=== PATIENT | male | born 1955 | race Caucasian/White ===

== ENCOUNTER 2017-02-22 10:36 | Observation (INO) | payer MEDICARE, MEDICAID ==
[2017-02-22] MEDS ORDERED: Albuterol/Ipratropium NEB.SOL* Albuterol 2.5 MG/Ipratropium 0.5 MG 3 ML INH ONE (11:45)
[2017-02-22 12:30] LABS: ABS Basophils 0.1 10^3/ul (0-0.2); ABS Eosinophils 0.2 10^3/ul (0-0.6); ABS Lymphocytes 1.9 10^3/ul (1.0-4.8); ABS Monocytes 0.8 10^3/ul (0-0.8); ABS Nucleated RBC 0 10^3/ul; Eosinophil % 2.5 % (0-6); Hematocrit 41 % (42-52); Hemoglobin 13.7 g/dl (14.0-18.0); Lymphocyte % 28.2 % (25-47); Mean Corpuscular HGB Conc 34 g/dl (31-36); Mean Corpuscular Hemoglobin 30 pg (27-31); Mean Corpuscular Volume 91 fL (80-94); Mean Platelet Volume 8 um3 (7.4-10.4); Nucleated Red Blood Cells % 0; Platelet Count 302 10^3/ul (150-450); Red Blood Count 4.52 10^6/ul (4.0-5.4); Red Cell Distribution Width 14 % (10.5-15); White Blood Count 6.9 10^3/ul (3.5-10.8)
[2017-02-22] MEDS: NS 0.9% 1000 ML* 2,000 ML IV ONE (12:34)
[2017-02-22 12:41] LABS: INR 1.1 (0.77-1.02)
--- NOTE | 2017-02-22 12:55 | RAD ---
Indication: Shortness of breath, hypoxia. Comparison: October 13, 2012 Technique: Upright AP 1221 hours Report: Low lung volumes compared with the prior exam with associated basilar atelectasis. Grossly clear pleural spaces. Negative for pneumothorax. Cardiomegaly. Unremarkable central pulmonary vasculature. IMPRESSION: Limited hypoventilated exam for this patient with associated basilar atelectasis.
[2017-02-22 13:00] LABS: EGFR Non-African American 45.5 (>60)
[2017-02-22] MEDS ORDERED: Magnesium Sulfate 2 GM IV* 2 GM/50 ML BAG IVPB ONE (13:18)
[2017-02-22] MEDS ORDERED: Acetaminophen TAB* 325 MG PO PRN (16:02)
[2017-02-22] MEDS ORDERED: Dextrose 50% Syringe 50 ML* 25 GM/50 ML SYRINGE IV PUSH PRN (16:03)
[2017-02-22] MEDS: Insulin LISPRO* 1 UNITS UNIT SUBCUT SCH (17:52)
[2017-02-22] MEDS: Atorvastatin* 10 MG TAB PO SCH (17:53)
[2017-02-22] MEDS: NS 0.9% 1000 ML* 1,000 ML IV SCH (17:56)
--- NOTE | 2017-02-22 18:08 | ED ---
Chasidy Jeffers Abhishek, scribed for Art Britton MD on 02/22/17 at 1216 . Complex/Multi-Sys Presentation - HPI Summary HPI Summary: This patient is a 61 year old M presenting [place] [facility] by with a chief complaint of weakness since 02/19/17. The Pt states that he has been having Low blood pressure, low oxygen levels and low blood sugar (this morning only). Currently blood sugar level is normal to slightly high (pt is diabetic). Pt is reportedly influenza A positive. The patient rates the pain 7/10 in severity. Symptoms aggravated by nothing. Symptoms alleviated by nothing. Patient reports wheezing, SOB, chest pain, body aches, and diaphoresis. Patient denies nausea, abd pain, leg pain, urinary pain, diarrhea, hematochezia, and syncope. Pt is on low dosages of aspirin. - History Of Current Complaint Chief Complaint: EDGeneral Time Seen by Provider: 02/22/17 11:33 Hx Obtained From: Patient Onset/Duration: Gradual Onset - 02/19/17, Lasting Days - since 02/19/17, Still Present Timing: Constant Severity Currently: Moderate - 7/10 in pain severity Severity Initially: Moderate Aggravating Factor(s): nothing Alleviating Factor(s): nothing Associated Signs And Symptoms: Positive: Weakness, SOB, Wheezing, Chest Pain, Abdominal Pain, Diaphoresis, Other - body aches. Negative leg pain, urinary pain , and hematochezia. Negative: Syncope, Nausea, Diarrhea - Allergies/Home Medications Allergies/Adverse Reactions: Allergies Allergy/AdvReac Type Severity Reaction Status Date / Time Penicillin G Allergy Unknown Verified 10/13/12 14:25 Reaction Details PMH/Surg Hx/FS Hx/Imm Hx Endocrine/Hematology History: Reports: Hx Diabetes Denies: Hx Thyroid Disease Cardiovascular History: Reports: Hx Angina, Hx Hypercholesterolemia, Hx Hypertension Denies: Hx Coronary Artery Disease, Hx Myocardial Infarction, Hx Valvular Heart Disease Respiratory History: Denies: Hx Asthma, Hx Chronic Obstructive Pulmonary Disease (COPD) GI History: Denies: Hx Ulcer Comment Only: Other GI Disorders - GURD - Cancer History Cancer Type, Location and Year: BARRETTS SYNDROM 16YRS AGO - Surgical History Surgery Procedure, Year, and Place: umbilical hernia as baby. throat surgery as child. lukasz fundoplication Infectious Disease History: No Infectious Disease History: Denies: Hx Hepatitis, Traveled Outside the [place] in Last 30 Days - Family History Known Family History: Positive: Cardiac Disease - CAD, Diabetes Family History: Negative IA - Social History Lives: With Family Alcohol Use: None Substance Use Type: Reports: None Smoking Status (MU): Former Smoker Review of Systems Positive: Skin Diaphoresis Eyes: Negative ENT: Negative Positive: Chest Pain Positive: Shortness Of Breath, Other - wheezing Positive: Other - Negative hematochezia. Negative: Abdominal Pain, Diarrhea, Nausea Negative: pain Positive: Myalgia - body aches, Other - negative leg pain Skin: Negative Negative: Syncope Psychological: Normal All Other Systems Reviewed And Are Negative: Yes Physical Exam - Summary Physical Exam Summary: General: well-appearing, no pain distress, Generalized weakness Skin: warm, color reflects adequate perfusion, dry Head: normal Eyes: EOMI, VINCE ENT: Oral mucous really dry Neck: supple, nontender Respiratory:Occasional wheeze Cardiovascular: RRR Abdomen: soft, nontender Bowel: present Musculoskeletal: normal, strength/ROM intact Neurological: normal, sensory/motor intact, A&O x3, No focal neurological deficit Psychological: affect/mood appropriate Triage Information Reviewed: Yes Vital Signs On Initial Exam: Initial Vitals Temp Pulse Resp BP Pulse Ox 97.0 F 95 22 146/103 97 02/22/17 10:42 02/22/17 10:42 02/22/17 10:42 02/22/17 10:42 02/22/17 10:42 Vital Signs Reviewed: Yes - [place] Coma Scale Coma Scale Total: 15 Diagnostics - Vital Signs Vital Signs Temp Pulse Resp BP Pulse Ox 02/22/17 10:42 97.0 F 95 22 146/103 97 - Laboratory Lab Results: Lab Results 02/22/17 02/22/17 02/22/17 Range/Units 12:16 12:16 12:16 WBC (3.5-10.8) 10^3/ul RBC (4.0-5.4) 10^6/ul Hgb (14.0-18.0) g/dl Hct (42-52) % MCV (80-94) fL MCH (27-31) pg MCHC (31-36) g/dl RDW (10.5-15) % Plt Count (150-450) 10^3/ul MPV (7.4-10.4) um3 Neut % (Auto) (38-83) % Lymph % (Auto) (25-47) % [place] % (Auto) (1-9) % Eos % (Auto) (0-6) % Baso % (Auto) (0-2) % Absolute Neuts (auto) (1.5-7.7) 10^3/ul Absolute Lymphs (auto) (1.0-4.8) 10^3/ul Absolute Monos (auto) (0-0.8) 10^3/ul Absolute Eos (auto) (0-0.6) 10^3/ul Absolute Basos (auto) (0-0.2) 10^3/ul Absolute Nucleated RBC 10^3/ul Nucleated RBC % INR (Anticoag Therapy) 1.10 H (0.77-1.02) APTT 34.4 (26.0-36.3) seconds Sodium 134 (133-145) mmol/L Potassium 4.1 (3.5-5.0) mmol/L Chloride 100 L (101-111) mmol/L Carbon Dioxide 25 (22-32) mmol/L Anion Gap 9 (2-11) mmol/L BUN 29 H (6-24) mg/dL Creatinine 1.55 H (0.67-1.17) mg/dL Est GFR ( Amer) 58.5 (>60) Est GFR (Non-Af Amer) 45.5 (>60) BUN/Creatinine Ratio 18.7 (8-20) Glucose 247 H (70-100) mg/dL Lactic Acid (0.5-2.0) mmol/L Calcium 9.2 (8.6-10.3) mg/dL Magnesium 1.8 L (1.9-2.7) mg/dL Total Bilirubin 0.30 (0.2-1.0) mg/dL AST 30 (13-39) U/L ALT 30 (7-52) U/L Alkaline Phosphatase 50 (34-104) U/L Troponin I 0.00 (<0.04) ng/mL C-Reactive Protein 64.95 H (< 5.00) mg/L B-Natriuretic Peptide 40 ( - 100) pg/mL Total Protein 6.8 (6.4-8.9) g/dL Albumin 3.2 (3.2-5.2) g/dL Globulin 3.6 (2-4) g/dL Albumin/Globulin Ratio 0.9 L (1-3) Lipase < 10 L (11.0-82.0) U/L TSH 2.75 (0.34-5.60) mcIU/mL 02/22/17 02/22/17 Range/Units 12:16 12:16 WBC 6.9 (3.5-10.8) 10^3/ul RBC 4.52 (4.0-5.4) 10^6/ul Hgb 13.7 L (14.0-18.0) g/dl Hct 41 L (42-52) % MCV 91 (80-94) fL MCH 30 (27-31) pg MCHC 34 (31-36) g/dl RDW 14 (10.5-15) % Plt Count 302 (150-450) 10^3/ul MPV 8 (7.4-10.4) um3 Neut % (Auto) 57.5 (38-83) % Lymph % (Auto) 28.2 (25-47) % [place] % (Auto) 11.1 H (1-9) % Eos % (Auto) 2.5 (0-6) % Baso % (Auto) 0.7 (0-2) % Absolute Neuts (auto) 4.0 (1.5-7.7) 10^3/ul Absolute Lymphs (auto) 1.9 (1.0-4.8) 10^3/ul Absolute Monos (auto) 0.8 (0-0.8) 10^3/ul Absolute Eos (auto) 0.2 (0-0.6) 10^3/ul Absolute Basos (auto) 0.1 (0-0.2) 10^3/ul Absolute Nucleated RBC 0 10^3/ul Nucleated RBC % 0 INR (Anticoag Therapy) (0.77-1.02) APTT (26.0-36.3) seconds Sodium (133-145) mmol/L Potassium (3.5-5.0) mmol/L Chloride (101-111) mmol/L Carbon Dioxide (22-32) mmol/L Anion Gap (2-11) mmol/L BUN (6-24) mg/dL Creatinine (0.67-1.17) mg/dL Est GFR ( Amer) (>60) Est GFR (Non-Af Amer) (>60) BUN/Creatinine Ratio (8-20) Glucose (70-100) mg/dL Lactic Acid 1.5 (0.5-2.0) mmol/L Calcium (8.6-10.3) mg/dL Magnesium (1.9-2.7) mg/dL Total Bilirubin (0.2-1.0) mg/dL AST (13-39) U/L ALT (7-52) U/L Alkaline Phosphatase (34-104) U/L Troponin I (<0.04) ng/mL C-Reactive Protein (< 5.00) mg/L B-Natriuretic Peptide ( - 100) pg/mL Total Protein (6.4-8.9) g/dL Albumin (3.2-5.2) g/dL Globulin (2-4) g/dL Albumin/Globulin Ratio (1-3) Lipase (11.0-82.0) U/L TSH (0.34-5.60) mcIU/mL Result Diagrams: 02/22/17 12:16 02/22/17 12:16 Lab Statement: Any lab studies that have been ordered have been reviewed, and results considered in the medical decision making process. - Radiology Chest X-ray Radiology Interpretation Completed By: Radiologist - CXR reveals, per radiologist, Limited hypoventilated exam for this patient with associated basilar atelectasis. ED physician has reviewed this radiology report and agrees. - EKG 1155 EKG Rhythm: Sinus Rhythm - [address] Segment: Normal Ectopy: None EKG Interpretation: EKG was taken at 1155 Complex Multi-Symp Course/Dx Course Of Treatment: ADMIT HOSPITALIST. CRITICAL CARE TIME LESS THAN 30 MINUTES. - Diagnoses Provider Diagnoses: Influenza A, Hypotension, Hypoxia Discharge - Discharge Plan Condition: Stable Disposition: ADMITTED TO [facility] documentation as recorded by the Chasidy fisher Abhishek accurately reflects the service I personally performed and the decisions made by me, Art Britton MD.
[2017-02-22] MEDS ORDERED: Gabapentin CAP(*) 300 MG PO SCH (21:00)
[2017-02-22] MEDS ORDERED: Nortriptyline CAP* 25 MG PO SCH (21:00)
[2017-02-22] MEDS: Heparin VIAL(*) 5000 UNITS/ML VIAL (FIVE THOUSAND) SUBCUT SCH (21:39)
[2017-02-22] MEDS: Oseltamivir CAP* 75 MG PO SCH (21:39)
--- NOTE | 2017-02-23 00:36 | HP ---
CC: Markell Hale MD * HISTORY AND PHYSICAL: DATE OF ADMISSION: 02/22/17 PRIMARY CARE PROVIDER: Dr. Markell Hale. ATTENDING PHYSICIAN: Dr. Merlene Manning * (dictated by Martina Do NP) CHIEF COMPLAINT: Generalized malaise and weakness for a week. HISTORY OF PRESENT ILLNESS: Mr. Grier is a 61-year-old male with past medical history significant for type 2 diabetes mellitus, Barrette's esophagus, hypertension, hyperlipidemia, GERD, and angina who presented to the emergency room from his primary care doctor's office with complaints of not feeling well for a week. The patient states that approximately a week ago, he began not feeling well. He reported not eating well due to feeling tired and weak. He denied any fever or chills, chest pain, nausea, vomiting, diarrhea, abdominal pain, shortness of breath. He denies any urinary symptoms such has urinary frequency, urgency or dysuria. He reports lightheadedness and dizziness when up. He also reported a nonproductive cough for approximately a week. He reports that his blood glucose has been low, he suspect due to not eating or drinking well. He presented to his primary care doctor's office for evaluation where he was found to be influenza A positive and was sent to the emergency room. While in the emergency room, the patient had labs that were fairly unremarkable , but significant for elevated creatinine of 1.55. He was found to have hypomagnesemia with a magnesium of 1.8, CRP of 64.95. He had no leukocytosis. He was afebrile. He was found to be slightly hypotensive with blood pressures ranging from the 70 systolic to the 120s. Hospitalists were asked to evaluate the patient for admission. PAST MEDICAL HISTORY: 1. Diabetes mellitus type 2. 2. Barrette's esophagus. 3. Hypertension. 4. Hyperlipidemia. 5. GERD. 6. Angina. PAST SURGICAL HISTORY: 1. Status post Sourav fundoplication. 2. Status post umbilical hernia repair as a child. 3. Status post several neck surgeries as a child. HOME MEDICATIONS: Include: 1. Invokana 300 mg oral daily. 2. Atenolol 25 mg oral daily. 3. Aspirin 162 mg oral daily. 4. Nitroglycerin 0.4 mg sublingual as needed for chest pain. 5. Levemir insulin 50 units subcutaneous daily. 6. Gabapentin 1200 mg oral daily. 7. Gabapentin 1800 mg oral at bedtime. 8. Vitamin D3 2000 units oral daily. 9. Metformin 1000 mg oral twice daily. 10. Glipizide 5 mg oral twice daily. 11. Pravastatin 40 mg oral daily. 12. Omeprazole 20 mg oral daily. 13. Nortriptyline 50 mg oral daily at bedtime. 14. Ibuprofen 600 mg oral 3 times daily as needed for pain. ALLERGIES: PENICILLIN G. FAMILY HISTORY: The patient's paternal grandfather passed at age 94 from heart disease. His father passed at age 66 from heart disease. The patient's paternal grandmother had a history of diabetes mellitus and the patient's mother passed from leukemia. SOCIAL HISTORY: The patient is a former smoker. He quit smoking approximately 22 years ago. Prior to that, he had a 20 to 25 year 2 and a half pack-a-day smoking history. He denies alcohol or recreational drug use. He is retired. He lives with his . His , Heidi Grier, will be his surrogate decision maker in the event he is unable to make decisions for himself. REVIEW OF SYSTEMS: I performed a 14-point review of systems. All the pertinent positives and negatives are mentioned in the history of present illness. The patient reports diabetic neuropathy affecting his feet. The remaining review of systems are negative. PHYSICAL EXAMINATION GENERAL: The patient is alert, pleasant, appears to be in no acute distress. VITAL SIGNS: Temperature 97.0, heart rate 89, respiratory rate 18, O2 sat 98% on room air, blood pressure 109/63. HEENT: Normocephalic, atraumatic. Pupils are equal and reactive to light. Extraocular movements are intact. Dry mucous membranes. RESPIRATORY: There is no accessory muscle use. The lungs are clear to auscultation bilateral. CARDIAC: Regular rate and rhythm. S1, S2 present. There are no murmurs, rubs , or gallops heard. ABDOMEN: Soft, large, nontender, nondistended. There are bowel sounds present x4. EXTREMITIES: There is no lower extremity edema. DP and PT pulses are 2+ and symmetric. MUSCULOSKELETAL: There is no clubbing or cyanosis noted. The patient exhibits good strength in all extremities. NEUROLOGIC: The patient is alert and oriented x4. Cranial nerves II through XII are grossly intact. PSYCHOLOGICAL: The patient is calm and cooperative. SKIN: There are no rashes or abnormalities seen. DIAGNOSTIC STUDIES/LAB DATA: Sodium 134, potassium 4.1, chloride 100, CO2 25, BUN 29, creatinine 1.55, glucose 247, magnesium 1.8. CRP 54.95. White blood cell count 6.9, hemoglobin 13.7, hematocrit 41, and glucose 302. EKG from today shows sinus rhythm, rate of 89, and a left anterior fascicular block similar to previous EKG from 11/06/10, there are no acute signs of ischemia. Chest x-ray from today. Radiologist's impression, limited hypoventilated exam, associated bibasilar atelectasis. IMPRESSION: Mr. Grier is a 61-year-old male with past medical history significant for type 2 diabetes, hypertension, hyperlipidemia, Barrette's esophagus, gastroesophageal reflux disease, and angina, who presents to the emergency room from his primary care doctor's office with generalized malaise, weakness for a week and who was found to be influenza A positive. He will be admitted as an observation for influenza. ASSESSMENT/PLAN: 1. Influenza A. The patient had a positive influenza A test at his primary care office, we will start him on Tamiflu. The patient's chest x-ray shows that he has bilateral lower lobe atelectasis. He has been encouraged to cough and deep breathe. We will give him an incentive spirometer. 2. Acute kidney injury. I suspect this is secondary to dehydration. We will give the patient IV fluids, recheck his labs in the morning. 3. Weakness. I suspect this is secondary to the patient's influenza. We will provide supportive care. The patient had change in his blood pressure from lying to standing, he did not quite have a 20-point drop in his systolic or 10- point drop in his diastolic and his heart rate remained stable. We will recheck orthostatic vital signs on him in the morning after he has received IV fluids overnight. 4. Hypomagnesium. The patient received electrolyte replacement in the emergency room. We will recheck his labs in the morning. 5. Type 2 diabetes mellitus. The patient will have fingersticks a.c. and h.s. He will be on a consistent carbohydrate diet. We will give him Lantus in place of his Levemir. He will have lispro sliding scale coverage with meals. We will hold his oral antidiabetic agents while he is in the hospital. 6. Hypertension. The patient has been hypotensive at this time, I suspect secondary to his illness. I am going to continue his atenolol, but place hold parameters on it. 7. Hyperlipidemia. The patient will be continued on statin. 8. Diabetic neuropathy. The patient will be continued on his home gabapentin. 9. Gastroesophageal reflux disease. The patient will be continue on his home omeprazole. 10. Fluids, electrolytes, nutrition: The patient will be on a consistent carbohydrate diet. 11. Code status: DNR. 12. DVT prophylaxis: The patient is at high risk. We will give him subcu heparin. 13. Disposition: Observation. TIME SPENT: Time for this admission was approximately 60 minutes, greater than half of that was spent with the patient and his discussing medications, past medical history, and the events leading to his arrival today, performing a physical examination. The case has been reviewed with the attending, Dr. Manning , who agrees with the plan of care. Reviewed by JORJE GUZMAN 02/26/2017 1811 [id number]/CPS #: [id number] MTDD
[2017-02-23] MEDS: NS 0.9% 1000 ML* 1,000 ML IV SCH (04:32)
[2017-02-23] MEDS: Heparin VIAL(*) 5000 UNITS/ML VIAL (FIVE THOUSAND) SUBCUT SCH ×2 (05:46→13:56)
[2017-02-23] MEDS: Insulin LISPRO* 1 UNITS UNIT SUBCUT SCH ×3 (07:32→16:31)
[2017-02-23] MEDS: Oseltamivir CAP* 75 MG PO SCH (08:37)
[2017-02-23] MEDS: Atorvastatin* 10 MG TAB PO SCH (08:38)
[2017-02-23] MEDS ORDERED: Omeprazole CAP* 20 MG PO SCH (09:00)
[2017-02-23] MEDS ORDERED: Atenolol TAB* 25 MG PO SCH (09:00)
[2017-02-23] MEDS ORDERED: Aspirin EC Low Dose* 81 MG TAB.EC PO SCH (09:00)
[2017-02-23] MEDS ORDERED: Gabapentin CAP(*) 300 MG PO SCH (09:00)
[2017-02-23] MEDS ORDERED: Insulin GLARGINE(*) 1 UNITS UNIT SUBCUT SCH (09:00)
[2017-02-23] MEDS ORDERED: Cholecalciferol TAB* 1000 UNITS PO SCH (09:00)
[2017-02-23 12:12] VITALS: BP 103/66
--- NOTE | 2017-02-23 13:54 | PN ---
Subjective Date of Service: 02/23/17 Interval History: Patient seen and examined at bedside. Denies fever, chills, shortness of breath , chest discomfort, N/V/D. Pt states that he continues to feel fatigued, but is over all feeling better. Family History: Unchanged from Admission Social History: Unchanged from Admission Past Medical History: Unchanged from Admission Objective Active Medications: Acetaminophen (Tylenol Tab*) 650 mg PO Q4H PRN Reason: FEVER/PAIN Aspirin (Aspirin Ec Low Dose*) 162 mg PO DAILY [facility] Atenolol (Tenormin Tab*) 25 mg PO DAILY [facility] Atorvastatin Calcium (Lipitor*) 10 mg PO DAILY [facility] Cholecalciferol (Vitamin D Tab*) 2,000 units PO DAILY [facility] Dextrose (D50w Syringe 50 Ml*) 12.5 gm IV PUSH .FOR FS < 60 - SS PRN Reason: FS < 60 Gabapentin (Neurontin Cap(*)) 1,200 mg PO DAILY [facility] Gabapentin (Neurontin Cap(*)) 1,800 mg PO BEDTIME [facility] Heparin Sodium (Porcine) (Heparin Vial(*)) 5,000 units SUBCUT Q8HR [facility] Sodium Chloride (Ns 0.9% 1000 Ml*) 1,000 mls @ 100 mls/hr IV PER RATE [facility] Insulin Glargine (Lantus(*)) 50 units SUBCUT DAILY [facility] Insulin Human Lispro (Humalog*) 0 - 10 units SUBCUT AC [facility] Nortriptyline HCl (Pamelor Cap*) 50 mg PO BEDTIME [facility] Omeprazole (Prilosec Cap*) 20 mg PO DAILY [facility] Oseltamivir Phosphate (Tamiflu Cap*) 75 mg PO BID [facility] Stop: 02/27/17 09:01 Vital Signs - 8 hr 02/23/17 02/23/17 02/23/17 07:20 08:03 08:10 Temperature 97.3 F Pulse Rate 72 79 Respiratory 18 18 Rate Blood Pressure 108/70 117/73 (mmHg) O2 Sat by Pulse 99 Oximetry 02/23/17 02/23/17 02/23/17 08:11 08:37 08:46 Temperature Pulse Rate 82 Respiratory 18 Rate Blood Pressure 96/60 132/72 (mmHg) O2 Sat by Pulse Oximetry 02/23/17 02/23/17 02/23/17 08:53 10:39 11:49 Temperature 97.3 F Pulse Rate 78 64 Respiratory 16 20 Rate Blood Pressure 132/72 103/66 (mmHg) O2 Sat by Pulse 100 Oximetry Oxygen Devices in Use Now: Nasal Cannula - 3L Appearance: NAD, laying in bed Ears/Nose/Mouth/Throat: Mucous Membranes Moist Respiratory: Symmetrical Chest Expansion and Respiratory Effort, Clear to Auscultation Cardiovascular: NL Sounds; No Murmurs; No JVD, RRR Abdominal: NL Sounds; No Tenderness; No Distention Extremities: No Edema Skin: No Rash or Ulcers Neurological: Alert and Oriented x 3, NL Muscle Strength and Tone Lines/Tubes/Other Access: Clean, Dry and Intact Peripheral IV - site benign Nutrition: Taking PO's Result Diagrams: 02/22/17 12:16 02/22/17 12:16 Additional Lab and Data: Assess/Plan/Problems-Billing Assessment: Mr. Grier is a 61 yo male with PMH significant DM, Barrette's esophagus, HTN, HLD, GERD, angina who presented to the emergency room with complaints of weakness and not feeling well for 1 week. He was found to have influenza A in his PCP office. - Patient Problems (1) Influenza A Code(s): J10.1 - FLU DUE TO OTH IDENT INFLUENZA VIRUS W OTH RESP MANIFEST SNOMED Code(s): 484398114 Comment: - Improving - Afebrile - Labs pending - Continue Tamiflu for 4 more days (2) LAZARO (acute kidney injury) Code(s): N17.9 - ACUTE KIDNEY FAILURE, UNSPECIFIED SNOMED Code(s): 35539618 Comment: - Suspect secondary to dehydration - Labs pending (3) Weakness Code(s): R53.1 - WEAKNESS SNOMED Code(s): 26066405 Comment: - Improving - Suspect secondary to illness (4) Electrolyte abnormality Code(s): E87.8 - OTH DISORDERS OF ELECTROLYTE AND FLUID BALANCE, NEC SNOMED Code(s): 654202419 Comment: - Hypomagnesium - Received replacement, labs pending today (5) Diabetes Code(s): E11.9 - TYPE 2 DIABETES MELLITUS WITHOUT COMPLICATIONS SNOMED Code(s) : 52702058 Comment: - With diabetic neuropathy - Glucose 120's - Continue Glucose checks, gabapentin, Lispro SS, and Lantus - Resume home oral antidiabetic agents at discharge (6) HTN (hypertension) Code(s): I10 - ESSENTIAL (PRIMARY) HYPERTENSION SNOMED Code(s): 49784087 Comment: - Mostly normotensive - Continue atenolol with hold patameters (7) GERD (gastroesophageal reflux disease) Code(s): K21.9 - GASTRO-ESOPHAGEAL REFLUX DISEASE WITHOUT ESOPHAGITIS SNOMED Code(s): 468549689 Comment: - Continue omeprazole (8) DVT prophylaxis Code(s): RXP0404 - SNOMED Code(s): 194153660 Comment: - SQ heparin (9) DNR (do not resuscitate) Status and Disposition: OBV. Stable for discharge to home later today if labs have improved.
[2017-02-23 14:22] LABS: ABS Basophils 0 10^3/ul (0-0.2); ABS Eosinophils 0.3 10^3/ul (0-0.6); ABS Lymphocytes 2.9 10^3/ul (1.0-4.8); ABS Monocytes 0.6 10^3/ul (0-0.8); ABS Nucleated RBC 0 10^3/ul; Eosinophil % 5.4 % (0-6); Hematocrit 35 % (42-52); Hemoglobin 11.8 g/dl (14.0-18.0); Lymphocyte % 49.4 % (25-47); Mean Corpuscular HGB Conc 34 g/dl (31-36); Mean Corpuscular Hemoglobin 30 pg (27-31); Mean Corpuscular Volume 90 fL (80-94); Mean Platelet Volume 7 um3 (7.4-10.4); Nucleated Red Blood Cells % 0; Platelet Count 283 10^3/ul (150-450); Red Cell Distribution Width 14 % (10.5-15); White Blood Count 5.8 10^3/ul (3.5-10.8)
[2017-02-23 14:37] LABS: EGFR Non-African American 63.6 (>60)
[2017-02-23] MEDS ORDERED: Magnesium Sulfate 2 GM IV* 2 GM/50 ML BAG IVPB ONE (14:56)
--- NOTE | 2017-02-24 07:55 | DS ---
CC: Dr. Markell Hale * DISCHARGE SUMMARY: DATE OF ADMISSION: 02/22/17 DATE OF DISCHARGE: 02/23/17 ATTENDING PHYSICIAN: Dr. Rajat Colin * (dictated by Martina Do NP). PRIMARY CARE PROVIDER: Dr. Markell Hale. PRIMARY DIAGNOSES: 1. Influenza A. 2. Generalized weakness, improving. 3. Acute kidney injury, resolved. STUDIES WHILE IN THE HOSPITAL: Chest x-ray from 02/22/17. Radiologist impression, limited hypoventilated exam, associated bibasilar atelectasis. DISCHARGE MEDICATIONS: New home medications: 1. Tamiflu 75 mg oral twice daily for 4 more days. Continued home medications: 2. Levemir insulin 50 units subcutaneous daily. 3. Invokana 300 mg oral daily. 4. Atenolol 25 mg oral daily. 5. Aspirin 162 mg oral daily. 6. Nitroglycerin 0.4 mg sublingual every 5 minutes as needed for chest pain. 7. Gabapentin 1200 mg oral every morning and 1800 mg oral in the evening. 8. Vitamin D3 2000 units oral daily. 9. Metformin 1000 mg oral twice daily. 10. Glipizide 5 mg oral twice daily. 11. Pravastatin 40 mg oral daily. 12. Omeprazole 20 mg oral daily. 13. Nortriptyline 50 mg oral daily at bedtime. 14. Ibuprofen 600 mg oral 3 times daily as needed for fever or pain. HISTORY OF PRESENT ILLNESS: Mr. Grier is a 61-year-old male with past medical history significant for type 2 diabetes mellitus, Baumann's esophagus, hypertension, hyperlipidemia, GERD, and angina, who presented to the emergency room from his primary care doctor's office, where he had been to be evaluated for not feeling well for a week. The patient stated that he had not been eating or drinking well due to feeling tired and weak. He denied any fever, chills, chest pain, nausea, vomiting, diarrhea, abdominal pain, and shortness of breath or urinary symptoms. He reported lightheadedness and dizziness when up. He reported nonproductive cough for approximately a week. He reported his blood glucoses have been low due to not eating and drinking. While at his primary care provider's office, he was found to have a positive test for influenza A and was sent to the emergency room. While in the emergency room, the patient had labs, were fairly unremarkable significant for elevated creatinine of 1.55, hypomagnesia with a magnesium of 1.6, elevated CRP of 64.95. He had no leukocytosis, was afebrile. He was found to be slightly hypotensive with blood pressures ranging from the 70s to 120 systolically and the hospitalists were asked to evaluate the patient for admission. While in the hospital, the patient continued to be afebrile. He received IV hydration overnight and blood pressures improved. He was feeling better. He was tolerating diet. He had repeat labs showing that his acute injury had resolved. He continued to have a low magnesium level and received another 2 g of magnesium. The patient was started on Tamiflu. The patient is not complaining of lightheaded or dizziness today, although he is noted to be slightly orthostatic and then encouraged to stay hydrated and change positions slowly. He was felt to be stable for discharge to home. Mr. Grier is stable for discharge to home today. Vital signs are as follows: Temperature 97.3, heart rate 64, respiratory rate 20, O2 sat 100% on 3 L via nasal cannula, blood pressure 103/66. DISCHARGE PLAN: Mr. Grier will be discharged to home. ACTIVITY: As tolerated. DIET: He will be on consistent carbohydrate diet. As far as his influenza A, he will be continued on Tamiflu 75 mg oral twice daily for 4 more days. He is encouraged to make sure that he is drinking fluids well to stay hydrated. As far as the patient's diabetes, his glucoses have been controlled. He has been resumed on his home medications. He has been instructed to followup with his primary care provider, Dr. Hale. He has an appointment on Sunday, 04/15, at 6:20 p.m. The patient has been asked to return to the emergency room for any shortness of breath or chest pain. This is a summarized report for a complex medical history and hospital stay. For further details, please see the entire medical record. TIME SPENT: Time of this discharge was approximately 50 minutes, greater than half of that was spent with the patient discussing discharge plans and instructions. CONDITION ON DISCHARGE: Stable. Reviewed by JORJE GUZMAN 02/26/2017 1813 [id number]/[facility] #: [id number] ELIZA
== END 2017-02-23 16:40 | disposition home or self-care (01) ==
LOC: ED 10:36 → INTOOBSV 15:28 → MEDTELE 15:28 → ED 16:44
PROVIDERS: ADMIT Hospitalist; ATTEND Hospitalist
DX: J09.X2 Influenza due to identified novel influenza A virus with other respiratory manifestations (principal); I95.9 Hypotension, unspecified; R53.1 Weakness; Z87.891 Personal history of nicotine dependence; R06.02 Shortness of breath; R06.2 Wheezing; R07.9 Chest pain, unspecified; R10.9 Unspecified abdominal pain; R09.02 Hypoxemia; Z79.82 Long term (current) use of aspirin
CPT/HCPCS: 36415; 71010; 80048; 80053; 83605; 83690; 83735; 83880; 84443; 84484; 85025; 85610; 85730; 86140; 87040; 93005; 94640; 94760; 96365; 99284; A9270-GY; G0378; J1644; J3475

== ENCOUNTER 2019-11-14 10:48 | Inpatient (IN) ==
[2019-11-14] MEDS ORDERED: NS 0.9% 1000 ml BAG 1,000 ML IV ONE ×2 (10:55→13:20)
[2019-11-14 12:13] LABS: ABS Basophils 0.1 10^3/ul (0-0.2); ABS Eosinophils 0.1 10^3/ul (0-0.6); ABS Lymphocytes 1.1 10^3/ul (1.0-4.8); ABS Monocytes 0.8 10^3/ul (0-0.8); ABS Neutrophils 15.7 10^3/ul (1.5-7.7); Eosinophil % 0.3 %; Hematocrit 39 % (42-52); Hemoglobin 13.1 g/dL (14.0-18.0); Mean Corpuscular HGB Conc 34 g/dL (31-36); Mean Corpuscular Hemoglobin 30 pg (27-31); Mean Corpuscular Volume 91 fL (80-94); Mean Platelet Volume 7.8 fL (7.4-10.4); Platelet Count 340 10^3/uL (150-450); Red Blood Count 4.33 10^6 /uL (4.18-5.48); Red Cell Distribution Width 14 % (10-15); White Blood Count 17.7 10^3/uL (3.5-10.8)
[2019-11-14] MEDS ORDERED: Cefepime 1 GM in Dextrose 1 GM/50 ML BAG IV ONE (12:14)
[2019-11-14 12:39] LABS: Troponin I 0.01 ng/mL (<0.03)
[2019-11-14 12:42] LABS: Albumin 3.7 g/dL (3.2-5.2); Albumin/Globulin Ratio 1.1 (1-3); BUN/Creatinine Ratio 15.2 (8-20); C Reactive Protein 26.41 mg/L (<8.01); Calcium 9.7 mg/dL (8.6-10.3); EGFR African American 50.8 (>60); EGFR Non-African American 41.9 (>60); Globulin 3.3 g/dL (2-4); Magnesium 1.6 mg/dL (1.9-2.7); Total Bilirubin 0.4 mg/dL (0.2-1.0)
[2019-11-14] MEDS ORDERED: Magnesium Sulfate 2 gm BAG 2 GM/50 ML BAG IVPB ONE (12:47)
[2019-11-14 12:50] LABS: Potassium 5.5 mmol/L (3.5-5.0)
[2019-11-14] MEDS ORDERED: Sodium Polystyrene ORAL.SUSP 15 GM/60 ML BTL PO ONE (14:45)
[2019-11-14] MEDS ORDERED: Azithromycin 500 mg/250 ml NS 500 MG/250 ML BAG IVPB ONE (15:07)
[2019-11-14] MEDS ORDERED: Dextrose 50% Syringe 50 ml 25 GM/50 ML SYRINGE IV PUSH PRN (16:45)
[2019-11-14] MEDS: NS 0.9% 1000 ml BAG 1,000 ML IV SCH (18:04)
[2019-11-14] MEDS ORDERED: Nortriptyline 25 mg TAB PO SCH (21:00)
[2019-11-14] MEDS: Heparin 5000 UNITS/ML 1 mL VIAL SUBCUT SCH (21:15)
[2019-11-15 02:36] LABS: Urine Appearance Clear; Urine Bilirubin Negative (Negative); Urine Blood Negative (Negative); Urine Color Yellow; Urine Glucose 3+(>=500 mg/dL) (Negative); Urine Ketones Negative (Negative); Urine Nitrite Negative (Negative); Urine Protein 1+(30 mg/dL) (Negative); Urine Specific Gravity 1.017 (1.010-1.030); Urine Urobilinogen Negative (Negative)
[2019-11-15 02:55] LABS: Urine Bacteria Absent (Absent); Urine Red Blood Cell 1+(3-5/hpf) (Absent); Urine White Blood Cell Trace(0-5/hpf) (Absent)
[2019-11-15] MEDS: NS 0.9% 1000 ml BAG 1,000 ML IV SCH (05:14)
[2019-11-15] MEDS: Heparin 5000 UNITS/ML 1 mL VIAL SUBCUT SCH (05:14)
[2019-11-15 08:45] LABS: ABS Basophils 0.1 10^3/ul (0-0.2); ABS Eosinophils 0.4 10^3/ul (0-0.6); ABS Lymphocytes 2.8 10^3/ul (1.0-4.8); ABS Neutrophils 9.3 10^3/ul (1.5-7.7); Hematocrit 36 % (42-52); Hemoglobin 12.3 g/dL (14.0-18.0); Lymphocyte % 20.6 %; Mean Corpuscular HGB Conc 35 g/dL (31-36); Mean Corpuscular Hemoglobin 31 pg (27-31); Mean Corpuscular Volume 91 fL (80-94); Mean Platelet Volume 7.5 fL (7.4-10.4); Nucleated Red Blood Cells % 0.1; Platelet Count 291 10^3/uL (150-450); Red Blood Count 3.91 10^6 /uL (4.18-5.48); Red Cell Distribution Width 14 % (10-15); White Blood Count 13.5 10^3/uL (3.5-10.8)
[2019-11-15 08:56] LABS: BUN/Creatinine Ratio 17.1 (8-20); Calcium 9.1 mg/dL (8.6-10.3); EGFR African American 80.2 (>60); EGFR Non-African American 66.3 (>60); Potassium 4.3 mmol/L (3.5-5.0)
[2019-11-15] MEDS ORDERED: Cholecalciferol (VIT D3) 1,000 unit TAB PO SCH (09:00)
[2019-11-15] MEDS ORDERED: Aspirin EC 81 mg TAB.EC (enteric coated) PO SCH (09:00)
[2019-11-15 11:13] VITALS: BP 144/69
[2019-11-15] MEDS ORDERED: cefTRIAXone 1 gm/50 mL NS BAG 1 GM/50 ML BAG IV SCH (12:00)
== END 2019-11-15 13:05 | disposition home or self-care (01) | DRG 194 ==
LOC: ED 10:48 → MED 15:07
PROVIDERS: ADMIT Hospitalist; ATTEND Hospitalist

== ENCOUNTER 2022-06-29 14:31 | Inpatient (IN) ==
[2022-06-29 15:09] LABS: Hematocrit 32.3 % (38-53); Hemoglobin 10.7 g/dL (13.2-16.3); Mean Corpuscular Hemoglobin 29.6 pg (27-33); Mean Corpuscular Hgb Conc 33.2 g/dL (31-36); Mean Corpuscular Volume 89.2 fL (80-97); Mean Platelet Volume 8.3 fL (7.5-11.2); Platelet Count 277 10^3/uL (150-450); Red Blood Count 3.62 10^6/uL (4.06-5.63); Red Cell Distribution Width 14.7 % (12-17); White Blood Count 24.2 10^3/uL (3.6-10.2)
[2022-06-29 15:12] LABS: ABS Monocytes 1.1 10^3/uL (0.0-1.1); ABS Neutrophils 22.1 10^3/uL (1.5-7.6); Lymphocyte % 4.2 %
[2022-06-29 15:36] LABS: High Sens Troponin Baseline 24 pg/mL (<20)
[2022-06-29] MEDS ORDERED: cefTRIAXone 1 gm/50 mL D5W 1 GM/50 ML BAG IV ONE ×2 (15:37→20:00)
[2022-06-29] MEDS ORDERED: Azithromycin 500 mg/250 ml NS 500 MG/250 ML BAG IVPB ONE (15:37)
[2022-06-29 15:38] LABS: INR 1.81 (0.88-1.18)
[2022-06-29 15:44] LABS: Venous Bicarbonate HCO3 21.5 mmol/L (24-28)
[2022-06-29 15:50] LABS: PCO2 Arterial 36 mmHg (35-45); PO2 Arterial 119 mmHg (80-100)
[2022-06-29 15:54] LABS: ALT 9 U/L (7-52); Albumin 2.6 g/dL (3.2-5.2); Albumin/Globulin Ratio 0.8 (1-3); Alkaline Phosphatase 63 U/L (35-149); Blood Urea Nitrogen 61 mg/dL (6-24); C Reactive Protein 269.57 mg/L (<8.01); CO2 Carbon Dioxide 20 mmol/L (22-32); Calcium 8.6 mg/dL (8.6-10.3); Chloride 102 mmol/L (101-111); Globulin 3.2 g/dL (2-4); Glucose 291 mg/dL (70-100); Sodium 132 mmol/L (135-145); Total Protein 5.8 g/dL (6.4-8.9); eGFR CKD-EPI 21.9 (>60)
[2022-06-29] MEDS ORDERED: Furosemide 40 mg/4 ml IV VIAL IV SLOW PU ONE (15:55)
[2022-06-29 16:36] LABS: AST 17 U/L (13-39); Anion Gap 10 mmol/L (2-16); Potassium 4.7 mmol/L (3.5-5.0)
[2022-06-29] MEDS ORDERED: Iodixanol (CONTRAST) 320 MG/ML 100 ML SDV IV ONE (16:40)
[2022-06-29 16:46] LABS: High Sensitivity Troponin 1 Hr 27 pg/mL (<20)
[2022-06-29 17:59] LABS: Lipase < 10 U/L (11.0-82.0)
[2022-06-29] MEDS ORDERED: metroNIDAZOLE IV 500 MG/100ML 500 MG/100 ML BAG IVPB ONE (19:28)
[2022-06-29] MEDS ORDERED: Dextrose 50% Syringe 50 ml 25 GM/50 ML SYRINGE IV PUSH PRN (20:18)
[2022-06-29] MEDS ORDERED: Enoxaparin 30 MG/0.3 ML SYR SUBCUT SCH (21:00)
[2022-06-30] MEDS ORDERED: Metoprolol Tartrate 5 mg VIAL 5 ml VIAL (1 mg/ml) IV ONE (00:49)
[2022-06-30] MEDS ORDERED: metroNIDAZOLE IV 500 MG/100ML 500 MG/100 ML BAG IVPB SCH (03:30)
[2022-06-30] MEDS: metroNIDAZOLE IV 500 MG/100ML 500 MG/100 ML BAG IVPB SCH ×3 (04:21→20:34)
[2022-06-30 06:10] LABS: Hematocrit 32.1 % (38-53); Hemoglobin 10.6 g/dL (13.2-16.3); Mean Corpuscular Volume 87.7 fL (80-97); Mean Platelet Volume 8.4 fL (7.5-11.2); Platelet Count 280 10^3/uL (150-450); Red Blood Count 3.66 10^6/uL (4.06-5.63); Red Cell Distribution Width 14.7 % (12-17)
[2022-06-30 06:20] LABS: ABS Lymphocytes 1.2 10^3/uL (1.0-4.8); ABS Monocytes 0.8 10^3/uL (0.0-1.1); ABS Neutrophils 21.1 10^3/uL (1.5-7.6); ABS Nucleated RBC 0.01 10^3/ul; Lymphocyte % 5.1 %
[2022-06-30 06:27] LABS: Albumin 2.5 g/dL (3.2-5.2); Albumin/Globulin Ratio 0.9 (1-3); Calcium 8.7 mg/dL (8.6-10.3); Creatinine, Serum 2.89 mg/dL (0.67-1.17); Globulin 2.8 g/dL (2-4); Magnesium 1.7 mg/dL (1.9-2.7); Potassium 4.2 mmol/L (3.5-5.0); Total Bilirubin 0.4 mg/dL (0.2-1.0); Total Protein 5.3 g/dL (6.4-8.9); eGFR CKD-EPI 22.9 (>60)
[2022-06-30] MEDS ORDERED: Midazolam 2 mg/2 ml VIAL 1 mg/ml 2 ml VIAL (2 mg) ONE (15:07)
[2022-06-30] MEDS ORDERED: fentaNYL 100 mcg/2 ml 50 MCG/ML VIAL ONE (15:07)
[2022-06-30] MEDS: cefTRIAXone 2 gm/50 mL D5W 2 GM/50 ML BAG IV SCH (16:26)
[2022-07-01] MEDS: metroNIDAZOLE IV 500 MG/100ML 500 MG/100 ML BAG IVPB SCH ×3 (03:00→20:33)
[2022-07-01 06:08] LABS: ABS Eosinophils 0.1 10^3/uL (0.0-0.5); ABS Lymphocytes 1.3 10^3/uL (1.0-4.8); ABS Neutrophils 18.5 10^3/uL (1.5-7.6); ABS Nucleated RBC 0.01 10^3/ul; Eosinophil % 0.3 %; Hematocrit 32.2 % (38-53); Hemoglobin 10.7 g/dL (13.2-16.3); Lymphocyte % 6.2 %; Mean Corpuscular Hemoglobin 29.1 pg (27-33); Mean Corpuscular Hgb Conc 33.2 g/dL (31-36); Mean Corpuscular Volume 87.8 fL (80-97); Mean Platelet Volume 8.2 fL (7.5-11.2); Platelet Count 261 10^3/uL (150-450); Red Blood Count 3.67 10^6/uL (4.06-5.63); White Blood Count 20.9 10^3/uL (3.6-10.2)
[2022-07-01 06:30] LABS: Albumin 2.4 g/dL (3.2-5.2); Albumin/Globulin Ratio 0.9 (1-3); C Reactive Protein 223.38 mg/L (<8.01); Calcium 8.4 mg/dL (8.6-10.3); Creatinine, Serum 2.75 mg/dL (0.67-1.17); Globulin 2.7 g/dL (2-4); Potassium 3.9 mmol/L (3.5-5.0); Total Bilirubin 0.4 mg/dL (0.2-1.0); Total Protein 5.1 g/dL (6.4-8.9); eGFR CKD-EPI 24.4 (>60)
[2022-07-01] MEDS: Insulin GLARGINE 100 un/ml 10 ml VIAL SUBCUT SCH (09:44)
[2022-07-01] MEDS: Ondansetron 4 mg VIAL 2 MG/ML 2 ml VIAL IV PRN ×2 (11:31→18:36)
[2022-07-01 12:47] LABS: Urine Appearance Cloudy; Urine Bilirubin Negative (Negative); Urine Blood 1+ (Negative); Urine Color Amber; Urine Glucose 2+(150 mg/dL) (Negative); Urine Ketones Negative (Negative); Urine Nitrite Negative (Negative); Urine Protein 2+(100 mg/dL) (Negative); Urine Specific Gravity 1.025 (1.002-1.030); Urine Urobilinogen Negative (Negative)
[2022-07-01 12:52] LABS: Urine Bacteria Absent (Absent); Urine Granular Casts Present (Absent); Urine Red Blood Cell Trace(0-2/hpf) (Absent); Urine Squamous Epithelial Cell Present (Absent); Urine White Blood Cell Trace(0-5/hpf) (Absent)
[2022-07-01] MEDS: Heparin 5000 UNITS/ML 1 mL VIAL SUBCUT SCH ×2 (13:05→22:56)
[2022-07-01] MEDS: cefTRIAXone 2 gm/50 mL D5W 2 GM/50 ML BAG IV SCH (17:20)
[2022-07-02] MEDS: metroNIDAZOLE IV 500 MG/100ML 500 MG/100 ML BAG IVPB SCH ×3 (03:37→20:54)
[2022-07-02] MEDS: Heparin 5000 UNITS/ML 1 mL VIAL SUBCUT SCH ×3 (05:24→21:00)
[2022-07-02 07:42] LABS: ABS Eosinophils 0.2 10^3/uL (0.0-0.5); ABS Lymphocytes 1.1 10^3/uL (1.0-4.8); ABS Monocytes 1.1 10^3/uL (0.0-1.1); ABS Neutrophils 16.1 10^3/uL (1.5-7.6); Eosinophil % 0.9 %; Hematocrit 31.6 % (38-53); Hemoglobin 10.4 g/dL (13.2-16.3); Lymphocyte % 6.1 %; Mean Corpuscular Hemoglobin 29.4 pg (27-33); Mean Corpuscular Hgb Conc 32.8 g/dL (31-36); Mean Corpuscular Volume 89.8 fL (80-97); Mean Platelet Volume 7.8 fL (7.5-11.2); Platelet Count 253 10^3/uL (150-450); Red Blood Count 3.52 10^6/uL (4.06-5.63); Red Cell Distribution Width 15.5 % (12-17); White Blood Count 18.5 10^3/uL (3.6-10.2)
[2022-07-02 08:18] LABS: Albumin 2.1 g/dL (3.2-5.2); Albumin/Globulin Ratio 0.8 (1-3); Calcium 7.8 mg/dL (8.6-10.3); Creatinine, Serum 2.4 mg/dL (0.67-1.17); Globulin 2.6 g/dL (2-4); Potassium 3.6 mmol/L (3.5-5.0); Total Bilirubin 0.3 mg/dL (0.2-1.0); Total Protein 4.7 g/dL (6.4-8.9); eGFR CKD-EPI 28.7 (>60)
[2022-07-02] MEDS: Insulin GLARGINE 100 un/ml 10 ml VIAL SUBCUT SCH (10:52)
[2022-07-02 13:43] LABS: Urine Appearance Cloudy; Urine Bilirubin Negative (Negative); Urine Blood Negative (Negative); Urine Color Amber; Urine Glucose 1+(50 mg/dL) (Negative); Urine Ketones Trace (Negative); Urine Nitrite Negative (Negative); Urine Protein 2+(100 mg/dL) (Negative); Urine Specific Gravity 1.026 (1.002-1.030); Urine Urobilinogen Negative (Negative)
[2022-07-02 13:48] LABS: Urine Bacteria Absent (Absent); Urine Red Blood Cell 2+(6-10/hpf) (Absent); Urine Squamous Epithelial Cell Present (Absent); Urine White Blood Cell Trace(0-5/hpf) (Absent)
[2022-07-02] MEDS: cefTRIAXone 2 gm/50 mL D5W 2 GM/50 ML BAG IV SCH (16:39)
[2022-07-03] MEDS: metroNIDAZOLE IV 500 MG/100ML 500 MG/100 ML BAG IVPB SCH ×3 (03:33→19:24)
[2022-07-03 05:38] LABS: ABS Basophils 0.1 10^3/uL (0.0-0.1); ABS Eosinophils 0.3 10^3/uL (0.0-0.5); ABS Lymphocytes 1.3 10^3/uL (1.0-4.8); ABS Monocytes 1.1 10^3/uL (0.0-1.1); ABS Neutrophils 11.2 10^3/uL (1.5-7.6); ABS Nucleated RBC 0.01 10^3/ul; Eosinophil % 2.3 %; Hematocrit 32.9 % (38-53); Hemoglobin 10.9 g/dL (13.2-16.3); Lymphocyte % 9.3 %; Mean Corpuscular Hgb Conc 33.1 g/dL (31-36); Mean Corpuscular Volume 87.8 fL (80-97); Mean Platelet Volume 7.9 fL (7.5-11.2); Platelet Count 264 10^3/uL (150-450); Red Blood Count 3.75 10^6/uL (4.06-5.63); Red Cell Distribution Width 15.2 % (12-17); White Blood Count 13.9 10^3/uL (3.6-10.2)
[2022-07-03] MEDS: Heparin 5000 UNITS/ML 1 mL VIAL SUBCUT SCH ×3 (05:38→22:06)
[2022-07-03 06:02] LABS: C Reactive Protein 76.89 mg/L (<8.01); Calcium 7.8 mg/dL (8.6-10.3); Creatinine, Serum 2.06 mg/dL (0.67-1.17); Potassium 3.5 mmol/L (3.5-5.0); eGFR CKD-EPI 34.4 (>60)
[2022-07-03] MEDS ORDERED: Sulfur Hexaflouride MICROSPHR 25 MG VIAL ONE (07:55)
[2022-07-03] MEDS: Insulin GLARGINE 100 un/ml 10 ml VIAL SUBCUT SCH (09:33)
[2022-07-03] MEDS: Calcium Carb (TUMS) 500 mg CHEW TAB PO PRN ×2 (11:38→23:26)
[2022-07-03] MEDS ORDERED: Lactated Ringers 1000 ml BAG 1,000 ML IV ONE ×2 (14:28→14:31)
[2022-07-03] MEDS ORDERED: Iodixanol (CONTRAST) 320 MG/ML 100 ML SDV IV ONE (15:07)
[2022-07-03 16:55] LABS: High Sensitivity Troponin 1 Hr 10 pg/mL (<20)
[2022-07-03] MEDS: Lactated Ringers 1000 ml BAG 1,000 ML IV SCH (17:29)
[2022-07-03] MEDS: cefTRIAXone 2 gm/50 mL D5W 2 GM/50 ML BAG IV SCH (17:30)
[2022-07-03 18:41] LABS: High Sensitivity Troponin 3 Hr 10 pg/mL (<20)
[2022-07-03] MEDS ORDERED: Morphine 2 MG/ML SYRINGE IV PRN (19:58)
[2022-07-04] MEDS: metroNIDAZOLE IV 500 MG/100ML 500 MG/100 ML BAG IVPB SCH ×3 (03:12→19:44)
[2022-07-04] MEDS: Heparin 5000 UNITS/ML 1 mL VIAL SUBCUT SCH ×3 (05:48→22:08)
[2022-07-04 05:49] LABS: ABS Eosinophils 0.5 10^3/uL (0.0-0.5); ABS Lymphocytes 1.4 10^3/uL (1.0-4.8); ABS Monocytes 1.5 10^3/uL (0.0-1.1); ABS Neutrophils 10.3 10^3/uL (1.5-7.6); Eosinophil % 3.3 %; Hematocrit 31.9 % (38-53); Hemoglobin 10.7 g/dL (13.2-16.3); Lymphocyte % 10.5 %; Mean Corpuscular Hemoglobin 29.3 pg (27-33); Mean Corpuscular Hgb Conc 33.4 g/dL (31-36); Mean Corpuscular Volume 87.9 fL (80-97); Mean Platelet Volume 7.4 fL (7.5-11.2); Platelet Count 297 10^3/uL (150-450); Red Blood Count 3.64 10^6/uL (4.06-5.63); Red Cell Distribution Width 15.5 % (12-17); White Blood Count 13.7 10^3/uL (3.6-10.2)
[2022-07-04 06:07] LABS: Calcium 8.1 mg/dL (8.6-10.3); Creatinine, Serum 1.6 mg/dL (0.67-1.17); Magnesium 1.8 mg/dL (1.9-2.7); Potassium 3.5 mmol/L (3.5-5.0); eGFR CKD-EPI 46.6 (>60)
[2022-07-04] MEDS: Insulin GLARGINE 100 un/ml 10 ml VIAL SUBCUT SCH (07:55)
[2022-07-04 08:05] LABS: High Sensitivity Troponin 1 Hr 9 pg/mL (<20)
[2022-07-04] MEDS: Lactated Ringers 1000 ml BAG 1,000 ML IV SCH (11:39)
[2022-07-04] MEDS: cefTRIAXone 2 gm/50 mL D5W 2 GM/50 ML BAG IV SCH (14:59)
[2022-07-05] MEDS: metroNIDAZOLE IV 500 MG/100ML 500 MG/100 ML BAG IVPB SCH ×3 (03:35→19:44)
[2022-07-05] MEDS: Heparin 5000 UNITS/ML 1 mL VIAL SUBCUT SCH ×3 (05:30→20:53)
[2022-07-05] MEDS: Insulin GLARGINE 100 un/ml 10 ml VIAL SUBCUT SCH (09:15)
[2022-07-05] MEDS: cefTRIAXone 2 gm/50 mL D5W 2 GM/50 ML BAG IV SCH (16:56)
[2022-07-06] MEDS: metroNIDAZOLE IV 500 MG/100ML 500 MG/100 ML BAG IVPB SCH ×3 (03:20→20:04)
[2022-07-06] MEDS: Heparin 5000 UNITS/ML 1 mL VIAL SUBCUT SCH ×3 (05:49→22:28)
[2022-07-06 06:26] LABS: ABS Eosinophils 0.4 10^3/uL (0.0-0.5); ABS Lymphocytes 1.4 10^3/uL (1.0-4.8); ABS Neutrophils 5.7 10^3/uL (1.5-7.6); ABS Nucleated RBC 0.01 10^3/ul; Eosinophil % 4.5 %; Hematocrit 31.5 % (38-53); Hemoglobin 10.5 g/dL (13.2-16.3); Lymphocyte % 16.4 %; Mean Corpuscular Hemoglobin 29.1 pg (27-33); Mean Corpuscular Hgb Conc 33.3 g/dL (31-36); Mean Corpuscular Volume 87.5 fL (80-97); Mean Platelet Volume 7.3 fL (7.5-11.2); Nucleated Red Blood Cells % 0.1 /100 WBC (0.0-0.4); Platelet Count 378 10^3/uL (150-450); White Blood Count 8.5 10^3/uL (3.6-10.2)
[2022-07-06 06:48] LABS: C Reactive Protein 24.31 mg/L (<8.01); Creatinine, Serum 1.29 mg/dL (0.67-1.17); Magnesium 1.6 mg/dL (1.9-2.7); Potassium 3.5 mmol/L (3.5-5.0); eGFR CKD-EPI 60.4 (>60)
[2022-07-06] MEDS ORDERED: Magnesium Sulfate IV 3 GM in NS 0.9% 100 ml BAG 100 ML IVPB ONE (07:49)
[2022-07-06] MEDS: Insulin GLARGINE 100 un/ml 10 ml VIAL SUBCUT SCH (09:19)
[2022-07-06] MEDS ORDERED: Lactated Ringers 1000 ml BAG 1,000 ML IV SCH (16:00)
[2022-07-06] MEDS: cefTRIAXone 2 gm/50 mL D5W 2 GM/50 ML BAG IV SCH (16:16)
[2022-07-06] MEDS: Calcium Carb (TUMS) 500 mg CHEW TAB PO PRN (23:47)
[2022-07-07] MEDS: metroNIDAZOLE IV 500 MG/100ML 500 MG/100 ML BAG IVPB SCH (03:25)
[2022-07-07] MEDS: Heparin 5000 UNITS/ML 1 mL VIAL SUBCUT SCH ×3 (06:09→21:07)
[2022-07-07] MEDS ORDERED: Senna TAB 8.6 mg TAB PO PRN (08:46)
[2022-07-07] MEDS ORDERED: Polyethylene Glycol 3350 17 GM PACKET PO PRN (08:46)
[2022-07-07] MEDS: Insulin GLARGINE 100 un/ml 10 ml VIAL SUBCUT SCH (09:11)
[2022-07-07] MEDS: Amoxicillin/Clavul 875/125 TAB (Augmentin 875 tab) PO SCH ×2 (10:48→17:32)
[2022-07-08] MEDS: Amoxicillin/Clavul 875/125 TAB (Augmentin 875 tab) PO SCH ×3 (00:40→17:24)
[2022-07-08] MEDS: Heparin 5000 UNITS/ML 1 mL VIAL SUBCUT SCH ×3 (06:01→20:39)
[2022-07-08 06:26] LABS: Creatinine, Serum 1.06 mg/dL (0.67-1.17); Magnesium 1.6 mg/dL (1.9-2.7); Potassium 3.5 mmol/L (3.5-5.0); eGFR CKD-EPI 76.4 (>60)
[2022-07-08] MEDS ORDERED: Magnesium Sulfate IV 3 GM in NS 0.9% 100 ml BAG 100 ML IVPB ONE (07:45)
[2022-07-08] MEDS: Insulin GLARGINE 100 un/ml 10 ml VIAL SUBCUT SCH (09:19)
[2022-07-09] MEDS: Amoxicillin/Clavul 875/125 TAB (Augmentin 875 tab) PO SCH ×3 (01:08→17:10)
[2022-07-09] MEDS: Heparin 5000 UNITS/ML 1 mL VIAL SUBCUT SCH ×3 (06:22→20:21)
[2022-07-09] MEDS: Insulin GLARGINE 100 un/ml 10 ml VIAL SUBCUT SCH (09:11)
[2022-07-10] MEDS: Amoxicillin/Clavul 875/125 TAB (Augmentin 875 tab) PO SCH ×3 (00:23→18:18)
[2022-07-10] MEDS: Heparin 5000 UNITS/ML 1 mL VIAL SUBCUT SCH ×3 (05:16→21:05)
[2022-07-10] MEDS: Insulin GLARGINE 100 un/ml 10 ml VIAL SUBCUT SCH (08:12)
[2022-07-10 12:53] LABS: Calcium 8.5 mg/dL (8.6-10.3); Creatinine, Serum 1.14 mg/dL (0.67-1.17); Potassium 3.9 mmol/L (3.5-5.0); eGFR CKD-EPI 70.1 (>60)
[2022-07-10] MEDS ORDERED: Lactated Ringers 1000 ml BAG 1,000 ML IV ONE (13:48)
[2022-07-10] MEDS ORDERED: AMOXICILLIN PO SCH (18:00)
[2022-07-10] MEDS ORDERED: CLAVUL PO SCH (18:00)
[2022-07-10 18:18] LABS: Magnesium 1.6 mg/dL (1.9-2.7)
[2022-07-10] MEDS ORDERED: Magnesium Sulfate 2 gm BAG 2 GM/50 ML BAG IVPB ONE (18:29)
[2022-07-10] MEDS: Amoxicillin/Clavul ORALSYR 80 MG/ML (400 MG/5 ML) PO SCH (20:57)
[2022-07-11] MEDS: Amoxicillin/Clavul ORALSYR 80 MG/ML (400 MG/5 ML) PO SCH ×3 (03:37→20:05)
[2022-07-11] MEDS: Heparin 5000 UNITS/ML 1 mL VIAL SUBCUT SCH ×3 (05:20→20:13)
[2022-07-11] MEDS: Insulin GLARGINE 100 un/ml 10 ml VIAL SUBCUT SCH (08:41)
[2022-07-11] MEDS ORDERED: Lactated Ringers 1000 ml BAG 1,000 ML IV ONE (16:01)
[2022-07-12] MEDS: Heparin 5000 UNITS/ML 1 mL VIAL SUBCUT SCH ×3 (05:41→21:13)
[2022-07-12] MEDS: Insulin GLARGINE 100 un/ml 10 ml VIAL SUBCUT SCH (09:30)
[2022-07-12] MEDS: Lactated Ringers 1000 ml BAG 1,000 ML IV SCH ×2 (11:35→17:51)
[2022-07-12 11:38] LABS: ABS Basophils 0.1 10^3/uL (0.0-0.1); ABS Eosinophils 0.3 10^3/uL (0.0-0.5); ABS Lymphocytes 1.8 10^3/uL (1.0-4.8); ABS Monocytes 1.2 10^3/uL (0.0-1.1); ABS Neutrophils 7.3 10^3/uL (1.5-7.6); ABS Nucleated RBC 0.01 10^3/ul; Eosinophil % 2.5 %; Hematocrit 29.5 % (38-53); Hemoglobin 9.9 g/dL (13.2-16.3); Lymphocyte % 16.8 %; Mean Corpuscular Hemoglobin 28.9 pg (27-33); Mean Corpuscular Hgb Conc 33.6 g/dL (31-36); Mean Corpuscular Volume 85.9 fL (80-97); Mean Platelet Volume 7.6 fL (7.5-11.2); Nucleated Red Blood Cells % 0.1 /100 WBC (0.0-0.4); Platelet Count 439 10^3/uL (150-450); Red Blood Count 3.43 10^6/uL (4.06-5.63); Red Cell Distribution Width 15.7 % (12-17); White Blood Count 10.6 10^3/uL (3.6-10.2)
[2022-07-12 12:53] LABS: Albumin 2.2 g/dL (3.2-5.2); Albumin/Globulin Ratio 0.7 (1-3); Calcium 8.2 mg/dL (8.6-10.3); Creatinine, Serum 0.99 mg/dL (0.67-1.17); Potassium 3.6 mmol/L (3.5-5.0); Total Bilirubin 0.3 mg/dL (0.2-1.0); Total Protein 5.2 g/dL (6.4-8.9)
[2022-07-13] MEDS: Heparin 5000 UNITS/ML 1 mL VIAL SUBCUT SCH ×2 (05:05→16:44)
[2022-07-13] MEDS: Insulin GLARGINE 100 un/ml 10 ml VIAL SUBCUT SCH (09:14)
[2022-07-13 20:16] VITALS: BP 146/74
== END 2022-07-13 18:00 | disposition home or self-care (01) | DRG 871 ==
LOC: ED 14:31 → SUATTDRO 19:55 → EDHOLD 19:55 → MEDTELE 22:48
PROVIDERS: ADMIT Student in an Organized Health Care Education/Training Program; ATTEND Internal Medicine

== ENCOUNTER 2022-07-18 13:29 | Inpatient (IN) ==
[2022-07-18] MEDS ORDERED: Piperacillin/Tazobac ADVAN 3.375 GM in NS 0.9% 100 ml BAG 100 ML IV ONE (13:51)
[2022-07-18] MEDS ORDERED: NS 0.9% 1000 ml BAG 1,000 ML IV ONE (13:51)
[2022-07-18 14:22] LABS: ABS Basophils 0.1 10^3/uL (0.0-0.1); ABS Eosinophils 0.2 10^3/uL (0.0-0.5); ABS Lymphocytes 1.7 10^3/uL (1.0-4.8); ABS Monocytes 1.1 10^3/uL (0.0-1.1); ABS Neutrophils 6.3 10^3/uL (1.5-7.6); ABS Nucleated RBC 0.01 10^3/ul; Eosinophil % 2.2 %; Hematocrit 29.9 % (38-53); Lymphocyte % 18.2 %; Mean Corpuscular Hgb Conc 33.3 g/dL (31-36); Mean Corpuscular Volume 87.1 fL (80-97); Mean Platelet Volume 7.5 fL (7.5-11.2); Nucleated Red Blood Cells % 0.1 /100 WBC (0.0-0.4); Platelet Count 419 10^3/uL (150-450); Red Blood Count 3.44 10^6/uL (4.06-5.63); Red Cell Distribution Width 16.2 % (12-17); White Blood Count 9.4 10^3/uL (3.6-10.2)
[2022-07-18 15:15] LABS: Albumin 2.3 g/dL (3.2-5.2); Calcium 8.3 mg/dL (8.6-10.3); Creatinine, Serum 1.09 mg/dL (0.67-1.17); Globulin 3.1 g/dL (2-4); Phosphorus 2.8 mg/dL (2.5-5.0); Potassium 3.9 mmol/L (3.5-5.0); Total Protein 5.4 g/dL (6.4-8.9); eGFR CKD-EPI 73.9 (>60)
[2022-07-18 15:16] LABS: Albumin/Globulin Ratio 0.7 (1-3); C Reactive Protein 25.41 mg/L (<8.01); Total Bilirubin 0.3 mg/dL (0.2-1.0)
[2022-07-18 15:49] LABS: High Sensitivity Troponin 1 Hr 7 pg/mL (<20)
[2022-07-18] MEDS ORDERED: Dextrose 50% Syringe 50 ml 25 GM/50 ML SYRINGE IV PUSH PRN (16:57)
[2022-07-18] MEDS ORDERED: Iodixanol (CONTRAST) 320 MG/ML 100 ML SDV IV ONE (18:51)
[2022-07-18] MEDS: Enoxaparin 40 MG/0.4 ML SYR SUBCUT SCH (19:35)
[2022-07-19] MEDS: Aspirin EC 81 mg TAB.EC (enteric coated) PO SCH (08:38)
[2022-07-19] MEDS ORDERED: NS 0.9% 1000 ml BAG 1,000 ML IV SCH (18:45)
[2022-07-19] MEDS: Enoxaparin 40 MG/0.4 ML SYR SUBCUT SCH (21:07)
[2022-07-20 06:04] LABS: ABS Basophils 0.1 10^3/uL (0.0-0.1); ABS Eosinophils 0.3 10^3/uL (0.0-0.5); ABS Lymphocytes 1.5 10^3/uL (1.0-4.8); ABS Monocytes 0.7 10^3/uL (0.0-1.1); ABS Nucleated RBC 0.04 10^3/ul; Hematocrit 29.9 % (38-53); Lymphocyte % 22.9 %; Mean Corpuscular Hemoglobin 29.3 pg (27-33); Mean Corpuscular Hgb Conc 33.3 g/dL (31-36); Mean Corpuscular Volume 88.1 fL (80-97); Nucleated Red Blood Cells % 0.6 /100 WBC (0.0-0.4); Platelet Count 259 10^3/uL (150-450); Red Blood Count 3.39 10^6/uL (4.06-5.63); Red Cell Distribution Width 16.6 % (12-17); White Blood Count 6.5 10^3/uL (3.6-10.2)
[2022-07-20 06:20] LABS: CO2 Carbon Dioxide 28 mmol/L (22-32); Chloride 105 mmol/L (101-111); Sodium 138 mmol/L (135-145)
[2022-07-20 06:23] LABS: Anion Gap 5 mmol/L (2-16)
[2022-07-20 06:25] LABS: Blood Urea Nitrogen 12 mg/dL (6-24); Creatinine, Serum 1.14 mg/dL (0.67-1.17); Glucose 78 mg/dL (70-100); eGFR CKD-EPI 70.1 (>60)
[2022-07-20] MEDS: Aspirin EC 81 mg TAB.EC (enteric coated) PO SCH (09:56)
[2022-07-20] MEDS ORDERED: NS 0.9% 1000 ml BAG 1,000 ML IV SCH (11:15)
[2022-07-20 19:04] LABS: Urine Appearance Turbid; Urine Bilirubin Negative (Negative); Urine Blood 3+ (Negative); Urine Color Yellow; Urine Glucose Negative (Negative); Urine Ketones 1+ (Negative); Urine Nitrite Negative (Negative); Urine Protein 2+(100 mg/dL) (Negative); Urine Specific Gravity 1.021 (1.002-1.030); Urine Urobilinogen Negative (Negative)
[2022-07-20 19:12] LABS: Urine Bacteria Absent (Absent); Urine Red Blood Cell 3+(>10/hpf) (Absent); Urine Squamous Epithelial Cell Present (Absent); Urine White Blood Cell 3+(>20/hpf) (Absent); Urine Yeast Present (Absent)
[2022-07-20] MEDS ORDERED: Cosyntropin 0.25 MG VIAL IV ONE (20:30)
[2022-07-20] MEDS: Enoxaparin 40 MG/0.4 ML SYR SUBCUT SCH (20:56)
[2022-07-20] MEDS: Nystatin TOP POWDER 15 GM BTL TOPICAL SCH (21:10)
[2022-07-21] MEDS ORDERED: cefTRIAXone 1 gm/50 mL D5W 1 GM/50 ML BAG IV SCH (07:45)
[2022-07-21] MEDS ORDERED: cefTRIAXone 1 GM Q24H (ADVAN) IVPB SCH (08:00)
[2022-07-21] MEDS: Aspirin EC 81 mg TAB.EC (enteric coated) PO SCH (08:35)
[2022-07-21] MEDS: Nystatin TOP POWDER 15 GM BTL TOPICAL SCH ×3 (08:45→21:23)
[2022-07-21 11:02] LABS: High Sensitivity Troponin 1 Hr 20 pg/mL (<20)
[2022-07-21] MEDS: Enoxaparin 40 MG/0.4 ML SYR SUBCUT SCH (21:23)
[2022-07-22 07:29] LABS: ABS Basophils 0.1 10^3/uL (0.0-0.1); ABS Eosinophils 0.3 10^3/uL (0.0-0.5); ABS Monocytes 0.7 10^3/uL (0.0-1.1); ABS Neutrophils 4.1 10^3/uL (1.5-7.6); ABS Nucleated RBC 0.01 10^3/ul; Eosinophil % 4.8 %; Hematocrit 28.8 % (38-53); Hemoglobin 9.9 g/dL (13.2-16.3); Lymphocyte % 27.4 %; Mean Corpuscular Hemoglobin 29.8 pg (27-33); Mean Corpuscular Hgb Conc 34.4 g/dL (31-36); Mean Corpuscular Volume 86.8 fL (80-97); Mean Platelet Volume 7.3 fL (7.5-11.2); Nucleated Red Blood Cells % 0.2 /100 WBC (0.0-0.4); Platelet Count 347 10^3/uL (150-450); Red Blood Count 3.31 10^6/uL (4.06-5.63); Red Cell Distribution Width 15.5 % (12-17); White Blood Count 7.1 10^3/uL (3.6-10.2)
[2022-07-22] MEDS ORDERED: cefTRIAXone 1 gm/50 mL D5W 1 GM/50 ML BAG IV SCH (08:00)
[2022-07-22] MEDS: Aspirin EC 81 mg TAB.EC (enteric coated) PO SCH (08:01)
[2022-07-22] MEDS: Nystatin TOP POWDER 15 GM BTL TOPICAL SCH ×3 (11:05→20:28)
[2022-07-22] MEDS: Enoxaparin 40 MG/0.4 ML SYR SUBCUT SCH (20:26)
[2022-07-23] MEDS: Aspirin EC 81 mg TAB.EC (enteric coated) PO SCH (09:11)
[2022-07-23] MEDS: Nystatin TOP POWDER 15 GM BTL TOPICAL SCH ×3 (09:15→22:43)
[2022-07-23] MEDS: Enoxaparin 40 MG/0.4 ML SYR SUBCUT SCH (22:35)
[2022-07-24] MEDS: Nystatin TOP POWDER 15 GM BTL TOPICAL SCH ×3 (09:06→21:01)
[2022-07-24] MEDS: Aspirin EC 81 mg TAB.EC (enteric coated) PO SCH (09:06)
[2022-07-24] MEDS ORDERED: Iodixanol (CONTRAST) 320 MG/ML 100 ML SDV IV ONE (11:39)
[2022-07-24 12:02] LABS: ABS Basophils 0.1 10^3/uL (0.0-0.1); ABS Eosinophils 0.3 10^3/uL (0.0-0.5); ABS Lymphocytes 2.1 10^3/uL (1.0-4.8); ABS Monocytes 0.8 10^3/uL (0.0-1.1); ABS Neutrophils 4.5 10^3/uL (1.5-7.6); ABS Nucleated RBC 0.01 10^3/ul; Eosinophil % 3.9 %; Hematocrit 32.9 % (38-53); Hemoglobin 10.9 g/dL (13.2-16.3); Lymphocyte % 26.8 %; Mean Corpuscular Hgb Conc 33.2 g/dL (31-36); Mean Corpuscular Volume 87.6 fL (80-97); Mean Platelet Volume 7.2 fL (7.5-11.2); Nucleated Red Blood Cells % 0.1 /100 WBC (0.0-0.4); Platelet Count 335 10^3/uL (150-450); Red Blood Count 3.75 10^6/uL (4.06-5.63); Red Cell Distribution Width 15.6 % (12-17); White Blood Count 7.7 10^3/uL (3.6-10.2)
[2022-07-24 12:13] LABS: Calcium 8.4 mg/dL (8.6-10.3); Creatinine, Serum 0.97 mg/dL (0.67-1.17); Magnesium 1.2 mg/dL (1.9-2.7); Potassium 3.6 mmol/L (3.5-5.0)
[2022-07-24] MEDS ORDERED: TENECTEPLASE 50 MG VIAL KIT 5 MG/ML (reconstituted) IV ONE (13:36)
[2022-07-25 04:43] LABS: ABS Eosinophils 0.4 10^3/uL (0.0-0.5); ABS Lymphocytes 1.6 10^3/uL (1.0-4.8); ABS Monocytes 0.7 10^3/uL (0.0-1.1); ABS Nucleated RBC 0.01 10^3/ul; Eosinophil % 5.4 %; Hematocrit 29.7 % (38-53); Hemoglobin 10.2 g/dL (13.2-16.3); Lymphocyte % 24.4 %; Mean Corpuscular Hemoglobin 29.3 pg (27-33); Mean Corpuscular Hgb Conc 34.4 g/dL (31-36); Mean Corpuscular Volume 85.2 fL (80-97); Mean Platelet Volume 6.8 fL (7.5-11.2); Nucleated Red Blood Cells % 0.1 /100 WBC (0.0-0.4); Platelet Count 325 10^3/uL (150-450); Red Blood Count 3.49 10^6/uL (4.06-5.63); White Blood Count 6.7 10^3/uL (3.6-10.2)
[2022-07-25 05:17] LABS: Calcium 8.3 mg/dL (8.6-10.3); Creatinine, Serum 0.92 mg/dL (0.67-1.17); HDL Cholesterol 21.1 mg/dL; Magnesium 1.3 mg/dL (1.9-2.7); Potassium 3.3 mmol/L (3.5-5.0); eGFR CKD-EPI 90.6 (>60)
[2022-07-25 05:32] LABS: TSH Ultra Thyroid Stim Horm 4.04 mcIU/mL (0.34-5.60)
[2022-07-25] MEDS ORDERED: Magnesium Sulf 4 GM/100 ML IV 4,000 MG/100 ML BAG IVPB ONE (05:48)
[2022-07-25] MEDS: Metoprolol Tartrate 5 mg VIAL 5 ml VIAL (1 mg/ml) IV PRN ×2 (06:25→13:38)
[2022-07-25] MEDS ORDERED: Metoprolol Tartrate 5 mg VIAL 5 ml VIAL (1 mg/ml) IV ONE (07:49)
[2022-07-25] MEDS: Aspirin EC 81 mg TAB.EC (enteric coated) PO SCH (08:04)
[2022-07-25] MEDS: Nystatin TOP POWDER 15 GM BTL TOPICAL SCH ×3 (08:10→20:12)
[2022-07-25] MEDS: KCL 20 MEQ/100 ML IVPREMIX 20 MEQ/100 ML BAG IV SCH ×2 (08:39→11:07)
[2022-07-25 10:38] LABS: C Reactive Protein 17.99 mg/L (<8.01)
[2022-07-25] MEDS ORDERED: LORazepam 2 mg VIAL 1 ml IV PUSH ONE (16:03)
[2022-07-26 10:29] LABS: ABS Eosinophils 0.4 10^3/uL (0.0-0.5); ABS Lymphocytes 1.8 10^3/uL (1.0-4.8); ABS Monocytes 0.7 10^3/uL (0.0-1.1); ABS Neutrophils 5.1 10^3/uL (1.5-7.6); ABS Nucleated RBC 0.01 10^3/ul; Eosinophil % 5.4 %; Hematocrit 31.1 % (38-53); Hemoglobin 10.4 g/dL (13.2-16.3); Lymphocyte % 22.1 %; Mean Corpuscular Hemoglobin 28.7 pg (27-33); Mean Corpuscular Hgb Conc 33.5 g/dL (31-36); Mean Corpuscular Volume 85.6 fL (80-97); Mean Platelet Volume 7.2 fL (7.5-11.2); Nucleated Red Blood Cells % 0.1 /100 WBC (0.0-0.4); Platelet Count 335 10^3/uL (150-450); Red Blood Count 3.63 10^6/uL (4.06-5.63); Red Cell Distribution Width 15.6 % (12-17)
[2022-07-26] MEDS: Nystatin TOP POWDER 15 GM BTL TOPICAL SCH ×3 (10:35→20:37)
[2022-07-26 10:45] LABS: Albumin 2.3 g/dL (3.2-5.2); Albumin/Globulin Ratio 0.8 (1-3); Calcium 8.3 mg/dL (8.6-10.3); Creatinine, Serum 0.97 mg/dL (0.67-1.17); Magnesium 1.7 mg/dL (1.9-2.7); Potassium 3.7 mmol/L (3.5-5.0); Total Bilirubin 0.3 mg/dL (0.2-1.0); Total Protein 5.3 g/dL (6.4-8.9)
[2022-07-26] MEDS ORDERED: Magnesium Sulfate IV 3 GM in NS 0.9% 100 ml BAG 100 ML IVPB ONE (11:31)
[2022-07-26 13:55] LABS: TSH Ultra Thyroid Stim Horm 3.07 mcIU/mL (0.34-5.60)
[2022-07-26 19:50] LABS: Hematocrit 31.7 % (38-53); Hemoglobin 10.7 g/dL (13.2-16.3); Mean Corpuscular Hemoglobin 28.7 pg (27-33); Mean Corpuscular Hgb Conc 33.7 g/dL (31-36); Mean Corpuscular Volume 85.2 fL (80-97); Mean Platelet Volume 7.1 fL (7.5-11.2); Platelet Count 362 10^3/uL (150-450); Red Blood Count 3.72 10^6/uL (4.06-5.63); Red Cell Distribution Width 15.7 % (12-17); White Blood Count 9.4 10^3/uL (3.6-10.2)
[2022-07-26 20:08] LABS: PCO2 Arterial 45 mmHg (35-45); PO2 Arterial 88 mmHg (80-100)
[2022-07-26 20:12] LABS: Albumin 2.6 g/dL (3.2-5.2); Albumin/Globulin Ratio 0.8 (1-3); Calcium 8.7 mg/dL (8.6-10.3); Creatinine, Serum 1.01 mg/dL (0.67-1.17); Globulin 3.2 g/dL (2-4); Potassium 3.7 mmol/L (3.5-5.0); Total Bilirubin 0.3 mg/dL (0.2-1.0); Total Protein 5.8 g/dL (6.4-8.9)
[2022-07-26] MEDS: Acetaminophen IV 1 GM/100ML 1,000 MG/100 ML BAG IV SCH (20:37)
[2022-07-27] MEDS ORDERED: Labetalol IV 5 MG/ML 20 ml VIAL IV PUSH ONE (02:03)
[2022-07-27] MEDS: Acetaminophen IV 1 GM/100ML 1,000 MG/100 ML BAG IV SCH ×3 (04:12→20:05)
[2022-07-27 06:40] LABS: ABS Basophils 0.1 10^3/uL (0.0-0.1); ABS Eosinophils 0.4 10^3/uL (0.0-0.5); ABS Monocytes 0.7 10^3/uL (0.0-1.1); ABS Neutrophils 4.7 10^3/uL (1.5-7.6); Eosinophil % 5.5 %; Hematocrit 29.7 % (38-53); Hemoglobin 10.2 g/dL (13.2-16.3); Lymphocyte % 25.3 %; Mean Corpuscular Hemoglobin 29.6 pg (27-33); Mean Corpuscular Hgb Conc 34.3 g/dL (31-36); Mean Corpuscular Volume 86.4 fL (80-97); Nucleated Red Blood Cells % 0.1 /100 WBC (0.0-0.4); Platelet Count 321 10^3/uL (150-450); Red Blood Count 3.43 10^6/uL (4.06-5.63); Red Cell Distribution Width 15.7 % (12-17); White Blood Count 7.9 10^3/uL (3.6-10.2)
[2022-07-27 07:14] LABS: Calcium 8.4 mg/dL (8.6-10.3); Creatinine, Serum 0.99 mg/dL (0.67-1.17); Magnesium 1.8 mg/dL (1.9-2.7); Potassium 3.5 mmol/L (3.5-5.0); eGFR CKD-EPI 82.5 (>60)
[2022-07-27] MEDS ORDERED: Magnesium Sulfate IV 1GM/100ML 1 GM/100 ML BAG IV ONE (08:30)
[2022-07-27] MEDS: Nystatin TOP POWDER 15 GM BTL TOPICAL SCH ×3 (09:57→20:06)
[2022-07-27] MEDS ORDERED: Ondansetron 4 mg VIAL 2 MG/ML 2 ml VIAL IV PRN (14:07)
[2022-07-27] MEDS ORDERED: Magnesium Sulfate 2 gm BAG 2 GM/50 ML BAG IVPB ONE (14:52)
[2022-07-28] MEDS: Acetaminophen IV 1 GM/100ML 1,000 MG/100 ML BAG IV SCH ×3 (04:21→20:30)
[2022-07-28 09:05] LABS: ABS Basophils 0.1 10^3/uL (0.0-0.1); ABS Eosinophils 0.5 10^3/uL (0.0-0.5); ABS Lymphocytes 2.1 10^3/uL (1.0-4.8); ABS Monocytes 0.6 10^3/uL (0.0-1.1); Eosinophil % 5.8 %; Hematocrit 28.2 % (38-53); Hemoglobin 9.4 g/dL (13.2-16.3); Lymphocyte % 22.9 %; Mean Corpuscular Hemoglobin 29.2 pg (27-33); Mean Corpuscular Hgb Conc 33.5 g/dL (31-36); Mean Corpuscular Volume 87.4 fL (80-97); Mean Platelet Volume 7.2 fL (7.5-11.2); Platelet Count 326 10^3/uL (150-450); Red Blood Count 3.23 10^6/uL (4.06-5.63); Red Cell Distribution Width 15.9 % (12-17); White Blood Count 9.3 10^3/uL (3.6-10.2)
[2022-07-28 09:20] LABS: Calcium 8.7 mg/dL (8.6-10.3); Creatinine, Serum 1.01 mg/dL (0.67-1.17); Potassium 3.6 mmol/L (3.5-5.0); eGFR CKD-EPI 80.5 (>60)
[2022-07-28] MEDS: Nystatin TOP POWDER 15 GM BTL TOPICAL SCH ×3 (09:39→21:18)
[2022-07-29] MEDS: Acetaminophen IV 1 GM/100ML 1,000 MG/100 ML BAG IV SCH ×3 (04:36→20:13)
[2022-07-29] MEDS: Nystatin TOP POWDER 15 GM BTL TOPICAL SCH ×3 (13:00→20:14)
[2022-07-30] MEDS: Acetaminophen IV 1 GM/100ML 1,000 MG/100 ML BAG IV SCH ×3 (03:13→20:47)
[2022-07-30] MEDS: Nystatin TOP POWDER 15 GM BTL TOPICAL SCH ×3 (10:34→21:29)
[2022-07-30] MEDS: NS 0.9% 1000 ml BAG 1,000 ML IV SCH (16:54)
[2022-07-31] MEDS: NS 0.9% 1000 ml BAG 1,000 ML IV SCH (02:56)
[2022-07-31] MEDS: Acetaminophen IV 1 GM/100ML 1,000 MG/100 ML BAG IV SCH ×3 (05:45→20:22)
[2022-07-31 06:31] LABS: ABS Basophils 0.1 10^3/uL (0.0-0.1); ABS Eosinophils 0.6 10^3/uL (0.0-0.5); ABS Lymphocytes 2.3 10^3/uL (1.0-4.8); ABS Monocytes 0.6 10^3/uL (0.0-1.1); ABS Neutrophils 4.5 10^3/uL (1.5-7.6); ABS Nucleated RBC 0.01 10^3/ul; Hematocrit 28.3 % (38-53); Hemoglobin 9.8 g/dL (13.2-16.3); Lymphocyte % 28.7 %; Mean Corpuscular Hemoglobin 29.4 pg (27-33); Mean Corpuscular Hgb Conc 34.4 g/dL (31-36); Mean Corpuscular Volume 85.5 fL (80-97); Mean Platelet Volume 6.9 fL (7.5-11.2); Nucleated Red Blood Cells % 0.1 /100 WBC (0.0-0.4); Platelet Count 326 10^3/uL (150-450); Red Blood Count 3.31 10^6/uL (4.06-5.63); White Blood Count 8.1 10^3/uL (3.6-10.2)
[2022-07-31 06:47] LABS: Calcium 8.6 mg/dL (8.6-10.3); Creatinine, Serum 1.07 mg/dL (0.67-1.17); Magnesium 1.4 mg/dL (1.9-2.7); Potassium 3.2 mmol/L (3.5-5.0); eGFR CKD-EPI 75.1 (>60)
[2022-07-31] MEDS: KCL 20 MEQ/100 ML IVPREMIX 20 MEQ/100 ML BAG IV SCH ×2 (09:12→21:17)
[2022-07-31] MEDS: Nystatin TOP POWDER 15 GM BTL TOPICAL SCH ×3 (09:15→20:23)
[2022-07-31] MEDS ORDERED: Magnesium Sulf 4 GM/100 ML IV 4,000 MG/100 ML BAG IVPB ONE (09:30)
[2022-07-31] MEDS: Lactated Ringers 1000 ml BAG 1,000 ML IV SCH (13:24)
[2022-07-31 17:31] LABS: Rapid COVID-19 Molecular Undetected (Undetected)
[2022-07-31] MEDS ORDERED: KCL 20 MEQ/100 ML IVPREMIX 20 MEQ/100 ML BAG ONE (20:05)
[2022-08-01] MEDS: Lactated Ringers 1000 ml BAG 1,000 ML IV SCH ×2 (00:36→09:59)
[2022-08-01] MEDS: Enoxaparin 40 MG/0.4 ML SYR SUBCUT SCH (06:10)
[2022-08-01] MEDS: Acetaminophen IV 1 GM/100ML 1,000 MG/100 ML BAG IV SCH ×3 (06:10→21:19)
[2022-08-01 06:39] LABS: ABS Basophils 0.2 10^3/uL (0.0-0.1); ABS Eosinophils 0.8 10^3/uL (0.0-0.5); ABS Lymphocytes 2.2 10^3/uL (1.0-4.8); ABS Monocytes 0.8 10^3/uL (0.0-1.1); ABS Neutrophils 5.7 10^3/uL (1.5-7.6); ABS Nucleated RBC 0.01 10^3/ul; Eosinophil % 7.8 %; Hematocrit 27.8 % (38-53); Hemoglobin 9.5 g/dL (13.2-16.3); Lymphocyte % 22.6 %; Mean Corpuscular Hemoglobin 29.8 pg (27-33); Mean Corpuscular Hgb Conc 34.2 g/dL (31-36); Mean Platelet Volume 7.1 fL (7.5-11.2); Nucleated Red Blood Cells % 0.1 /100 WBC (0.0-0.4); Platelet Count 330 10^3/uL (150-450); Red Cell Distribution Width 16.6 % (12-17); White Blood Count 9.7 10^3/uL (3.6-10.2)
[2022-08-01 06:50] LABS: Calcium 8.5 mg/dL (8.6-10.3); Creatinine, Serum 0.98 mg/dL (0.67-1.17); Magnesium 1.7 mg/dL (1.9-2.7); Potassium 3.3 mmol/L (3.5-5.0); eGFR CKD-EPI 83.5 (>60)
[2022-08-01] MEDS ORDERED: Magnesium Sulfate IV 3 GM in NS 0.9% 100 ml BAG 100 ML IVPB ONE (07:11)
[2022-08-01] MEDS ORDERED: Potassium Chlor 20 meq TAB.ER PO ONE (07:11)
[2022-08-01] MEDS: Nystatin TOP POWDER 15 GM BTL TOPICAL SCH ×3 (10:19→21:20)
[2022-08-02] MEDS: Acetaminophen IV 1 GM/100ML 1,000 MG/100 ML BAG IV SCH ×2 (05:12→13:05)
[2022-08-02] MEDS: Enoxaparin 40 MG/0.4 ML SYR SUBCUT SCH (05:20)
[2022-08-02 07:58] LABS: Calcium 8.7 mg/dL (8.6-10.3); Creatinine, Serum 0.93 mg/dL (0.67-1.17); Magnesium 1.7 mg/dL (1.9-2.7); Potassium 3.4 mmol/L (3.5-5.0); eGFR CKD-EPI 88.9 (>60)
[2022-08-02] MEDS ORDERED: Potassium Chlor 20 meq TAB.ER PO ONE (08:24)
[2022-08-02] MEDS ORDERED: Magnesium Sulf 4 GM/100 ML IV 4,000 MG/100 ML BAG IVPB ONE (08:24)
[2022-08-02 10:36] VITALS: BP 159/77
[2022-08-02] MEDS: Nystatin TOP POWDER 15 GM BTL TOPICAL SCH (10:54)
== END 2022-08-02 14:28 | DRG 73 ==
LOC: EDHOLD 13:29 → ED 13:29 → SUATTDRO 16:51 → MED 20:37 → SUATTDRO 07-20 11:00 → ICU 07-24 12:14 → MEDTELE 07-25 17:29
PROVIDERS: ADMIT Hospitalist; ATTEND Internal Medicine

== ENCOUNTER 2022-10-09 19:37 | Inpatient (IN) ==
[2022-10-09 20:15] LABS: ABS Basophils 0.1 10^3/uL (0.0-0.1); ABS Eosinophils 0.5 10^3/uL (0.0-0.5); ABS Lymphocytes 3.1 10^3/uL (1.0-4.8); ABS Monocytes 0.8 10^3/uL (0.0-1.1); ABS Neutrophils 4.8 10^3/uL (1.5-7.6); ABS Nucleated RBC 0.01 10^3/ul; Eosinophil % 5.1 %; Hematocrit 30.3 % (38-53); Hemoglobin 10.4 g/dL (13.2-16.3); Lymphocyte % 33.7 %; Mean Corpuscular Hemoglobin 29.4 pg (27-33); Mean Corpuscular Hgb Conc 34.3 g/dL (31-36); Mean Corpuscular Volume 85.5 fL (80-97); Mean Platelet Volume 7.1 fL (7.5-11.2); Nucleated Red Blood Cells % 0.1 /100 WBC (0.0-0.4); Platelet Count 386 10^3/uL (150-450); Red Blood Count 3.55 10^6/uL (4.06-5.63); White Blood Count 9.2 10^3/uL (3.6-10.2)
[2022-10-09 20:21] LABS: INR 1.42 (0.88-1.18)
[2022-10-09 20:38] LABS: Albumin 2.3 g/dL (3.2-5.2); Albumin/Globulin Ratio 0.7 (1-3); Calcium 7.6 mg/dL (8.6-10.3); Creatinine, Serum 0.98 mg/dL (0.67-1.17); Globulin 3.3 g/dL (2-4); Total Bilirubin 0.5 mg/dL (0.2-1.0); Total Protein 5.6 g/dL (6.4-8.9); eGFR CKD-EPI 83.5 (>60)
[2022-10-09 20:48] LABS: Potassium 2.2 mmol/L (3.5-5.0)
[2022-10-09] MEDS ORDERED: Potassium Chlor 20 meq TAB.ER PO ONE (20:51)
[2022-10-09 21:12] LABS: Magnesium 1.2 mg/dL (1.9-2.7)
[2022-10-09] MEDS ORDERED: Magnesium Sulfate IV 3 GM in NS 0.9% 100 ml BAG 100 ML IVPB ONE (21:19)
[2022-10-09] MEDS: KCL 20 MEQ/100 ML IVPREMIX 20 MEQ/100 ML BAG IV SCH (21:42)
[2022-10-09 22:13] LABS: High Sensitivity Troponin 1 Hr 21 pg/mL (<20)
[2022-10-10 01:54] LABS: Calcium 7.4 mg/dL (8.6-10.3); Creatinine, Serum 0.91 mg/dL (0.67-1.17); Magnesium 1.8 mg/dL (1.9-2.7); eGFR CKD-EPI 91.2 (>60)
[2022-10-10 02:10] LABS: Potassium 2.3 mmol/L (3.5-5.0)
[2022-10-10] MEDS: KCL 20 MEQ/100 ML IVPREMIX 20 MEQ/100 ML BAG IV SCH ×3 (02:42→10:17)
[2022-10-10] MEDS: Enoxaparin 40 MG/0.4 ML SYR SUBCUT SCH (02:49)
[2022-10-10] MEDS: Potassium Chloride LIQUID 20 MEQ/15 ML LIQUID PO SCH ×3 (03:24→11:32)
[2022-10-10 06:12] LABS: Calcium 7.5 mg/dL (8.6-10.3); Creatinine, Serum 0.85 mg/dL (0.67-1.17); eGFR CKD-EPI 94.1 (>60)
[2022-10-10 06:13] LABS: Potassium 2.7 mmol/L (3.5-5.0)
[2022-10-10] MEDS: Aspirin EC 81 mg TAB.EC (enteric coated) PO SCH (09:30)
[2022-10-10] MEDS: Nystatin TOP POWDER 15 GM BTL TOPICAL SCH ×3 (11:32→20:17)
[2022-10-10 12:16] LABS: Calcium 7.9 mg/dL (8.6-10.3); Creatinine, Serum 0.9 mg/dL (0.67-1.17); Magnesium 1.7 mg/dL (1.9-2.7); eGFR CKD-EPI 92.5 (>60)
[2022-10-10] MEDS ORDERED: Magnesium Sulfate 2 gm BAG 2 GM/50 ML BAG IVPB ONE (13:44)
[2022-10-10] MEDS ORDERED: Potassium Chloride LIQUID 20 MEQ/15 ML LIQUID PO ONE (13:57)
[2022-10-10 20:54] LABS: Calcium 7.8 mg/dL (8.6-10.3); Creatinine, Serum 0.83 mg/dL (0.67-1.17); Potassium 3.1 mmol/L (3.5-5.0); eGFR CKD-EPI 94.7 (>60)
[2022-10-11] MEDS: Enoxaparin 40 MG/0.4 ML SYR SUBCUT SCH (06:02)
[2022-10-11 06:51] LABS: ABS Basophils 0.1 10^3/uL (0.0-0.1); ABS Eosinophils 0.7 10^3/uL (0.0-0.5); ABS Lymphocytes 2.3 10^3/uL (1.0-4.8); ABS Monocytes 0.8 10^3/uL (0.0-1.1); ABS Nucleated RBC 0.01 10^3/ul; Eosinophil % 7.9 %; Hemoglobin 9.6 g/dL (13.2-16.3); Lymphocyte % 25.4 %; Mean Corpuscular Hemoglobin 29.4 pg (27-33); Mean Corpuscular Hgb Conc 34.4 g/dL (31-36); Mean Corpuscular Volume 85.5 fL (80-97); Mean Platelet Volume 7.1 fL (7.5-11.2); Nucleated Red Blood Cells % 0.1 /100 WBC (0.0-0.4); Platelet Count 356 10^3/uL (150-450); Red Blood Count 3.28 10^6/uL (4.06-5.63); Red Cell Distribution Width 17.1 % (12-17); White Blood Count 8.9 10^3/uL (3.6-10.2)
[2022-10-11 06:58] LABS: Calcium 7.8 mg/dL (8.6-10.3); Creatinine, Serum 0.89 mg/dL (0.67-1.17); Potassium 2.9 mmol/L (3.5-5.0); eGFR CKD-EPI 92.8 (>60)
[2022-10-11 08:46] LABS: Magnesium 1.8 mg/dL (1.9-2.7)
[2022-10-11] MEDS ORDERED: Magnesium Sulfate IV 1GM/100ML 1 GM/100 ML BAG IV ONE ×2 (10:00→17:46)
[2022-10-11] MEDS: Nystatin TOP POWDER 15 GM BTL TOPICAL SCH ×3 (11:00→22:06)
[2022-10-11] MEDS: Aspirin EC 81 mg TAB.EC (enteric coated) PO SCH (11:01)
[2022-10-11] MEDS: Potassium EFFERVES 25 meq TAB PO ONE (11:03)
[2022-10-11 13:37] LABS: Venous Bicarbonate HCO3 35.3 mmol/L (24-28)
[2022-10-11] MEDS ORDERED: Potassium EFFERVES 25 meq TAB PO ONE (14:00)
[2022-10-11] MEDS ORDERED: Dextrose 50% Syringe 50 ml 25 GM/50 ML SYRINGE IV PUSH PRN (19:53)
[2022-10-11 20:13] LABS: ABS Basophils 0.1 10^3/uL (0.0-0.1); ABS Eosinophils 0.6 10^3/uL (0.0-0.5); ABS Lymphocytes 2.6 10^3/uL (1.0-4.8); ABS Monocytes 0.7 10^3/uL (0.0-1.1); ABS Neutrophils 4.3 10^3/uL (1.5-7.6); ABS Nucleated RBC 0.01 10^3/ul; Eosinophil % 6.7 %; Hematocrit 29.8 % (38-53); Hemoglobin 10.1 g/dL (13.2-16.3); Lymphocyte % 31.2 %; Mean Corpuscular Hemoglobin 29.1 pg (27-33); Mean Corpuscular Hgb Conc 33.8 g/dL (31-36); Mean Corpuscular Volume 86.1 fL (80-97); Nucleated Red Blood Cells % 0.1 /100 WBC (0.0-0.4); Platelet Count 354 10^3/uL (150-450); Red Blood Count 3.46 10^6/uL (4.06-5.63); Red Cell Distribution Width 16.9 % (12-17); White Blood Count 8.2 10^3/uL (3.6-10.2)
[2022-10-11 20:29] LABS: Albumin 2.2 g/dL (3.2-5.2); Albumin/Globulin Ratio 0.6 (1-3); Calcium 8.1 mg/dL (8.6-10.3); Creatinine, Serum 1.11 mg/dL (0.67-1.17); Globulin 3.5 g/dL (2-4); Potassium 3.8 mmol/L (3.5-5.0); Total Bilirubin 0.4 mg/dL (0.2-1.0); Total Protein 5.7 g/dL (6.4-8.9); eGFR CKD-EPI 71.9 (>60)
[2022-10-11 20:31] LABS: Magnesium 2.1 mg/dL (1.9-2.7)
[2022-10-11 21:43] LABS: High Sensitivity Troponin 1 Hr 13 pg/mL (<20)
[2022-10-11] MEDS: Al Hydrox/Mg Hydrox/Simet LIQ 30 ML UDC PO ONE ×2 (22:01→22:18)
[2022-10-12 03:57] LABS: Urine Appearance Turbid; Urine Bilirubin Negative (Negative); Urine Blood 1+ (Negative); Urine Color Amber; Urine Glucose 1+(50 mg/dL) (Negative); Urine Ketones Negative (Negative); Urine Nitrite Positive (Negative); Urine Protein 3+(>=500 mg/dL) (Negative); Urine Specific Gravity 1.017 (1.002-1.030); Urine Urobilinogen Negative (Negative)
[2022-10-12 04:02] LABS: Urine Amorphous Crystals Present (Absent); Urine Bacteria 2+ (Absent); Urine Red Blood Cell 3+(>10/hpf) (Absent); Urine White Blood Cell 3+(>20/hpf) (Absent); Urine Yeast Present (Absent)
[2022-10-12] MEDS: Enoxaparin 40 MG/0.4 ML SYR SUBCUT SCH (05:17)
[2022-10-12 06:20] LABS: ABS Basophils 0.1 10^3/uL (0.0-0.1); ABS Eosinophils 0.6 10^3/uL (0.0-0.5); ABS Lymphocytes 2.6 10^3/uL (1.0-4.8); ABS Monocytes 0.7 10^3/uL (0.0-1.1); ABS Neutrophils 3.1 10^3/uL (1.5-7.6); ABS Nucleated RBC 0.01 10^3/ul; Eosinophil % 8.1 %; Hematocrit 27.7 % (38-53); Hemoglobin 9.5 g/dL (13.2-16.3); Lymphocyte % 36.9 %; Mean Corpuscular Hemoglobin 29.6 pg (27-33); Mean Corpuscular Hgb Conc 34.5 g/dL (31-36); Mean Platelet Volume 7.1 fL (7.5-11.2); Nucleated Red Blood Cells % 0.1 /100 WBC (0.0-0.4); Platelet Count 327 10^3/uL (150-450); Red Blood Count 3.22 10^6/uL (4.06-5.63); Red Cell Distribution Width 17.2 % (12-17)
[2022-10-12 06:36] LABS: Calcium 7.9 mg/dL (8.6-10.3); Creatinine, Serum 1.02 mg/dL (0.67-1.17); Potassium 3.1 mmol/L (3.5-5.0); eGFR CKD-EPI 79.6 (>60)
[2022-10-12] MEDS ORDERED: Potassium EFFERVES 25 meq TAB PO ONE ×2 (07:41→15:12)
[2022-10-12] MEDS: Aspirin EC 81 mg TAB.EC (enteric coated) PO SCH (10:08)
[2022-10-12] MEDS: Potassium EFFERVES 25 meq TAB PO ONE (10:17)
[2022-10-12] MEDS: cefTRIAXone 1 gm/50 mL D5W 1 GM/50 ML BAG IV SCH (12:18)
[2022-10-12] MEDS: Nystatin TOP POWDER 15 GM BTL TOPICAL SCH ×3 (12:29→20:34)
[2022-10-12 21:31] LABS: Calcium 8.1 mg/dL (8.6-10.3); Creatinine, Serum 1.15 mg/dL (0.67-1.17); Magnesium 1.9 mg/dL (1.9-2.7); Potassium 3.8 mmol/L (3.5-5.0); eGFR CKD-EPI 68.9 (>60)
[2022-10-13] MEDS: Enoxaparin 40 MG/0.4 ML SYR SUBCUT SCH (06:28)
[2022-10-13 07:03] LABS: ABS Eosinophils 0.5 10^3/uL (0.0-0.5); ABS Monocytes 0.7 10^3/uL (0.0-1.1); ABS Neutrophils 3.9 10^3/uL (1.5-7.6); ABS Nucleated RBC 0.01 10^3/ul; Eosinophil % 5.8 %; Hematocrit 28.5 % (38-53); Hemoglobin 9.7 g/dL (13.2-16.3); Lymphocyte % 36.6 %; Mean Corpuscular Hemoglobin 29.4 pg (27-33); Mean Corpuscular Hgb Conc 33.9 g/dL (31-36); Mean Corpuscular Volume 86.6 fL (80-97); Mean Platelet Volume 7.3 fL (7.5-11.2); Nucleated Red Blood Cells % 0.1 /100 WBC (0.0-0.4); Platelet Count 351 10^3/uL (150-450); Red Blood Count 3.29 10^6/uL (4.06-5.63); Red Cell Distribution Width 17.2 % (12-17); White Blood Count 8.2 10^3/uL (3.6-10.2)
[2022-10-13 07:22] LABS: Creatinine, Serum 1.16 mg/dL (0.67-1.17); Potassium 3.7 mmol/L (3.5-5.0); eGFR CKD-EPI 68.2 (>60)
[2022-10-13] MEDS ORDERED: Potassium EFFERVES 25 meq TAB PO ONE (07:28)
[2022-10-13] MEDS: Nystatin TOP POWDER 15 GM BTL TOPICAL SCH ×3 (10:00→20:46)
[2022-10-13] MEDS: Aspirin EC 81 mg TAB.EC (enteric coated) PO SCH (11:34)
[2022-10-13] MEDS: cefTRIAXone 1 gm/50 mL D5W 1 GM/50 ML BAG IV SCH (11:42)
[2022-10-13 14:32] LABS: ABS Basophils 0.1 10^3/uL (0.0-0.1); ABS Eosinophils 0.5 10^3/uL (0.0-0.5); ABS Lymphocytes 2.7 10^3/uL (1.0-4.8); ABS Monocytes 0.7 10^3/uL (0.0-1.1); ABS Neutrophils 3.8 10^3/uL (1.5-7.6); Eosinophil % 6.3 %; Hemoglobin 9.8 g/dL (13.2-16.3); Lymphocyte % 34.6 %; Mean Corpuscular Hemoglobin 29.3 pg (27-33); Mean Corpuscular Hgb Conc 33.8 g/dL (31-36); Mean Corpuscular Volume 86.8 fL (80-97); Mean Platelet Volume 7.2 fL (7.5-11.2); Platelet Count 343 10^3/uL (150-450); Red Blood Count 3.35 10^6/uL (4.06-5.63); Red Cell Distribution Width 17.3 % (12-17); White Blood Count 7.8 10^3/uL (3.6-10.2)
[2022-10-13 14:48] LABS: PCO2 Arterial 53 mmHg (35-45); PO2 Arterial 95 mmHg (80-100)
[2022-10-13 14:51] LABS: Calcium 8.2 mg/dL (8.6-10.3); Creatinine, Serum 1.1 mg/dL (0.67-1.17); Magnesium 1.9 mg/dL (1.9-2.7); eGFR CKD-EPI 72.7 (>60)
[2022-10-14 05:58] LABS: ABS Basophils 0.1 10^3/uL (0.0-0.1); ABS Eosinophils 0.5 10^3/uL (0.0-0.5); ABS Lymphocytes 2.5 10^3/uL (1.0-4.8); ABS Monocytes 0.8 10^3/uL (0.0-1.1); ABS Neutrophils 3.8 10^3/uL (1.5-7.6); Eosinophil % 6.2 %; Lymphocyte % 33.1 %; Mean Corpuscular Hemoglobin 29.9 pg (27-33); Mean Corpuscular Hgb Conc 34.5 g/dL (31-36); Mean Corpuscular Volume 86.6 fL (80-97); Mean Platelet Volume 7.3 fL (7.5-11.2); Platelet Count 329 10^3/uL (150-450); Red Blood Count 3.34 10^6/uL (4.06-5.63); Red Cell Distribution Width 16.8 % (12-17); White Blood Count 7.7 10^3/uL (3.6-10.2)
[2022-10-14 06:20] LABS: Calcium 8.1 mg/dL (8.6-10.3); Creatinine, Serum 0.97 mg/dL (0.67-1.17); Magnesium 1.8 mg/dL (1.9-2.7); Potassium 3.8 mmol/L (3.5-5.0); eGFR CKD-EPI 84.5 (>60)
[2022-10-14] MEDS: Enoxaparin 40 MG/0.4 ML SYR SUBCUT SCH (06:26)
[2022-10-14] MEDS ORDERED: Magnesium Sulfate IV 1GM/100ML 1 GM/100 ML BAG IV ONE (08:34)
[2022-10-14] MEDS: Aspirin EC 81 mg TAB.EC (enteric coated) PO SCH (10:26)
[2022-10-14] MEDS: Nystatin TOP POWDER 15 GM BTL TOPICAL SCH ×3 (10:34→22:00)
[2022-10-14] MEDS: cefTRIAXone 1 gm/50 mL D5W 1 GM/50 ML BAG IV SCH (12:31)
[2022-10-15] MEDS: Enoxaparin 40 MG/0.4 ML SYR SUBCUT SCH (06:03)
[2022-10-15 06:29] LABS: ABS Basophils 0.1 10^3/uL (0.0-0.1); ABS Eosinophils 0.5 10^3/uL (0.0-0.5); ABS Lymphocytes 2.5 10^3/uL (1.0-4.8); ABS Monocytes 0.7 10^3/uL (0.0-1.1); ABS Neutrophils 4.1 10^3/uL (1.5-7.6); ABS Nucleated RBC 0.01 10^3/ul; Eosinophil % 5.9 %; Hematocrit 29.3 % (38-53); Lymphocyte % 31.8 %; Mean Corpuscular Hemoglobin 29.3 pg (27-33); Mean Corpuscular Hgb Conc 34.1 g/dL (31-36); Mean Platelet Volume 7.3 fL (7.5-11.2); Nucleated Red Blood Cells % 0.1 /100 WBC (0.0-0.4); Platelet Count 348 10^3/uL (150-450); Red Blood Count 3.41 10^6/uL (4.06-5.63); Red Cell Distribution Width 17.2 % (12-17); White Blood Count 7.9 10^3/uL (3.6-10.2)
[2022-10-15 06:51] LABS: Magnesium 1.8 mg/dL (1.9-2.7)
[2022-10-15 09:42] LABS: Albumin 2.1 g/dL (3.2-5.2); Albumin/Globulin Ratio 0.6 (1-3); Calcium 8.1 mg/dL (8.6-10.3); Creatinine, Serum 0.95 mg/dL (0.67-1.17); Globulin 3.3 g/dL (2-4); Potassium 3.8 mmol/L (3.5-5.0); Total Bilirubin 0.3 mg/dL (0.2-1.0); Total Protein 5.4 g/dL (6.4-8.9); eGFR CKD-EPI 86.6 (>60)
[2022-10-15] MEDS ORDERED: KCL 20 MEQ/100 ML IVPREMIX 20 MEQ/100 ML BAG IV ONE (09:49)
[2022-10-15] MEDS: Aspirin EC 81 mg TAB.EC (enteric coated) PO SCH (11:30)
[2022-10-15] MEDS: Nystatin TOP POWDER 15 GM BTL TOPICAL SCH ×3 (11:31→21:25)
[2022-10-15] MEDS: cefTRIAXone 1 gm/50 mL D5W 1 GM/50 ML BAG IV SCH (11:37)
[2022-10-16] MEDS: Enoxaparin 40 MG/0.4 ML SYR SUBCUT SCH (06:29)
[2022-10-16 07:57] LABS: ABS Basophils 0.1 10^3/uL (0.0-0.1); ABS Eosinophils 0.4 10^3/uL (0.0-0.5); ABS Lymphocytes 2.5 10^3/uL (1.0-4.8); ABS Monocytes 0.6 10^3/uL (0.0-1.1); ABS Neutrophils 4.1 10^3/uL (1.5-7.6); Eosinophil % 5.8 %; Hematocrit 30.3 % (38-53); Hemoglobin 10.3 g/dL (13.2-16.3); Lymphocyte % 32.5 %; Mean Corpuscular Hemoglobin 29.5 pg (27-33); Mean Corpuscular Hgb Conc 34.1 g/dL (31-36); Mean Corpuscular Volume 86.6 fL (80-97); Nucleated Red Blood Cells % 0.1 /100 WBC (0.0-0.4); Platelet Count 358 10^3/uL (150-450); Red Blood Count 3.49 10^6/uL (4.06-5.63); Red Cell Distribution Width 17.2 % (12-17); White Blood Count 7.7 10^3/uL (3.6-10.2)
[2022-10-16 08:17] LABS: Albumin 2.2 g/dL (3.2-5.2); Albumin/Globulin Ratio 0.7 (1-3); Calcium 8.2 mg/dL (8.6-10.3); Globulin 3.3 g/dL (2-4); Potassium 4.1 mmol/L (3.5-5.0); Total Bilirubin 0.2 mg/dL (0.2-1.0); Total Protein 5.5 g/dL (6.4-8.9); eGFR CKD-EPI 81.5 (>60)
[2022-10-16] MEDS: cefTRIAXone 1 gm/50 mL D5W 1 GM/50 ML BAG IV SCH (10:32)
[2022-10-16] MEDS: Aspirin EC 81 mg TAB.EC (enteric coated) PO SCH (10:32)
[2022-10-16 13:40] LABS: Rapid COVID-19 Molecular Undetected (Undetected)
[2022-10-16] MEDS: Nystatin TOP POWDER 15 GM BTL TOPICAL SCH ×2 (14:32)
[2022-10-16 15:20] VITALS: BP 142/84
== END 2022-10-16 16:45 | DRG 640 ==
LOC: EDHOLD 19:37 → ED 19:37 → SUATTDRO 21:17 → MEDTELE 10-10 00:59 → SUATTDRO 10-11 11:00
PROVIDERS: ADMIT Hospitalist; ATTEND Internal Medicine Hematology & Oncology

== ENCOUNTER 2023-09-13 09:13 | Observation (INO) ==
[2023-09-13 09:50] LABS: ABS Basophils 0.1 10^3/uL (0.0-0.1); ABS Eosinophils 0.2 10^3/uL (0.0-0.5); ABS Lymphocytes 3.6 10^3/uL (1.0-4.8); ABS Monocytes 0.9 10^3/uL (0.0-1.1); ABS Neutrophils 6.6 10^3/uL (1.5-7.6); Hematocrit 33.9 % (38-53); Hemoglobin 11.2 g/dL (13.2-16.3); Lymphocyte % 31.6 %; Mean Corpuscular Hemoglobin 30.3 pg (27-33); Mean Corpuscular Hgb Conc 33.2 g/dL (31-36); Mean Corpuscular Volume 91.2 fL (80-97); Platelet Count 379 10^3/uL (150-450); Red Blood Count 3.72 10^6/uL (4.06-5.63); Red Cell Distribution Width 14.4 % (12-17); White Blood Count 11.4 10^3/uL (3.6-10.2)
[2023-09-13 09:58] LABS: INR 1.15 (0.83-1.13)
[2023-09-13 11:07] LABS: Albumin 3.5 g/dL (3.2-5.2); Albumin/Globulin Ratio 0.9 (1-3); Calcium 9.7 mg/dL (8.6-10.3); Creatinine, Serum 1.65 mg/dL (0.67-1.17); Globulin 3.7 g/dL (2-4); Potassium 4.1 mmol/L (3.5-5.0); Total Bilirubin 0.5 mg/dL (0.2-1.0); Total Protein 7.2 g/dL (6.4-8.9); eGFR CKD-EPI 44.4 (>60)
[2023-09-13 11:32] LABS: High Sensitivity Troponin 1 Hr 8 pg/mL (<20)
[2023-09-13] MEDS: Iodixanol (CONTRAST) 320 MG/ML 100 ML SDV IV ONE (13:06)
[2023-09-13 15:00] LABS: Free T3 2.66 pg/mL (2.5-3.9)
[2023-09-13 15:02] LABS: TSH Ultra Thyroid Stim Horm 0.99 mcIU/mL (0.34-5.60)
[2023-09-13 15:04] LABS: Free T4 1.37 ng/dL (0.61-1.12)
[2023-09-13] MEDS ORDERED: Nitroglycerin 0.3 mg TAB SL ONE (15:24)
[2023-09-13] MEDS ORDERED: Dextrose 50% Syringe 50 ml 25 GM/50 ML SYRINGE IV PUSH PRN (17:39)
[2023-09-13] MEDS: Enoxaparin 40 MG/0.4 ML SYR SUBCUT SCH (19:26)
[2023-09-13] MEDS ORDERED: Ondansetron 4 mg VIAL 2 MG/ML 2 ml VIAL IV PRN (19:46)
[2023-09-13 21:40] LABS: Calcium 9.3 mg/dL (8.6-10.3); Creatinine, Serum 1.8 mg/dL (0.67-1.17); HDL Cholesterol 31.5 mg/dL; Potassium 3.8 mmol/L (3.5-5.0)
[2023-09-14] MEDS ORDERED: Lactated Ringers 1000 ml BAG 1,000 ML IV SCH ×2 (06:24→07:00)
[2023-09-14] MEDS: NS 0.9% 1000 ml BAG 1,000 ML IV SCH (06:36)
[2023-09-14 07:08] LABS: ABS Basophils 0.1 10^3/uL (0.0-0.1); ABS Eosinophils 0.3 10^3/uL (0.0-0.5); ABS Lymphocytes 2.8 10^3/uL (1.0-4.8); ABS Monocytes 0.7 10^3/uL (0.0-1.1); ABS Neutrophils 5.3 10^3/uL (1.5-7.6); ABS Nucleated RBC 0.01 10^3/ul; Eosinophil % 3.6 %; Hematocrit 32.6 % (38-53); Hemoglobin 11.2 g/dL (13.2-16.3); Lymphocyte % 30.4 %; Mean Corpuscular Hemoglobin 31.3 pg (27-33); Mean Corpuscular Hgb Conc 34.3 g/dL (31-36); Mean Corpuscular Volume 91.1 fL (80-97); Mean Platelet Volume 8.2 fL (7.5-11.2); Nucleated Red Blood Cells % 0.1 %/100WBC (0.0-0.8); Platelet Count 331 10^3/uL (150-450); Red Blood Count 3.57 10^6/uL (4.06-5.63); Red Cell Distribution Width 14.6 % (12-17); White Blood Count 9.2 10^3/uL (3.6-10.2)
[2023-09-14] MEDS ORDERED: Insulin NPH 100 units/ml SUBCUT ONE (08:00)
[2023-09-14 08:22] LABS: Calcium 9.3 mg/dL (8.6-10.3); Creatinine, Serum 1.86 mg/dL (0.67-1.17); Magnesium 1.5 mg/dL (1.9-2.7); Phosphorus 3.4 mg/dL (2.5-5.0); Potassium 4.4 mmol/L (3.5-5.0); eGFR CKD-EPI 38.4 (>60)
[2023-09-14] MEDS ORDERED: Insulin ISOPH/REG 70/30 SUBCUT SCH (09:00)
[2023-09-14] MEDS ORDERED: Regadenoson 0.4 MG/5 ML SYRINGE ONE (09:05)
[2023-09-14] MEDS: Pantoprazole VIAL 40 MG VIAL IV SCH (12:34)
[2023-09-14] MEDS: Magnesium Sulf 4 GM/100 ML IV 4,000 MG/100 ML BAG IVPB ONE (12:37)
[2023-09-14] MEDS: Sulfur Hexaflouride MICROSPHR 25 MG VIAL IV ONE (13:15)
[2023-09-14] MEDS: Insulin NPH 100 units/ml SUBCUT SCH (13:15)
[2023-09-14 14:02] LABS: Calcium 9.3 mg/dL (8.6-10.3); Creatinine, Serum 1.79 mg/dL (0.67-1.17); eGFR CKD-EPI 40.3 (>60)
[2023-09-14 18:49] VITALS: BP 176/78
[2023-09-15] MEDS ORDERED: Insulin NPH 100 units/ml SUBCUT ONE (08:00)
== END 2023-09-14 19:45 | disposition home or self-care (01) ==
LOC: EDHOLD 09:13 → ED 09:13 → MEDTELE 21:06
PROVIDERS: ADMIT Hospitalist; ATTEND Hospitalist